=== PATIENT | female | born 1975 | race American Indian/Alaskan Native ===

== ENCOUNTER 2019-12-07 23:29 | Observation (INO) | payer MEDICAID, SELFPAY ==
[2019-12-07 23:36] VITALS: BP 121/58; PULSE 105; RESP 14; TEMP 36.8; O2SAT 99; BMI 23.3
--- NOTE | 2019-12-07 23:41 | ED_ITS ---
HPI - Female Genitourinary General Chief complaint: OB/Uterine Contractions Stated complaint: 2nd part of miscarriage today/pain Time Seen by Provider: 12/07/19 23:30 Source: patient Mode of arrival: Ambulatory Limitations: no limitations History of Present Illness HPI Narrative: 44F daily smoker without significant medical history is a at 7 weeks with ongoing miscarriage. She presents with heavy bleeding since 1800 and now is dizzy, weak, and lightheaded. She started feeling dizzy and lightheaded on Monday [facility] She [facility] evaluation and followed up again yesterday and was started on a medication that sounds like misoprostol. She had an ultrasound that demonstrated demise. She denies any chest pain or shortness of breath. She denies nausea, vomiting or diarrhea. She denies any dysuria, frequency or urgency. She takes no blood thinners. She states that she has bled through 10 pads since 6:00 p.m. and has changed her clothes multiple times. She states she is passing multiple clots as well. MD Complaint: vaginal bleeding Onset (ago): hour(s) Severity: moderate Quality: Aching Relieving factors: none Exacerbating factors: none Vaginal discharge: blood, dark blood and blood clots Patient : Yes Associated symptoms: weakness Related Data Home Medications Medication Instructions Recorded Confirmed citalopram 20 mg tablet 20 mg PO DAILY 08/08/19 08/08/19 Allergies Allergy/AdvReac Type Severity Reaction Status Date / Time No Known Drug Allergies Allergy Unverified 08/08/19 11:28 Review of Systems Constitutional Constitutional: Denies chills, Denies fatigue, Denies fever(s), Denies frequent falls, Denies lethargy and Reports weakness Eyes Eyes: Denies change in vision, Denies eye discharge, Denies irritation and Denies loss of vision ENT Ears, Nose, Mouth, and Throat: Denies change in voice, Denies dizziness, Denies neck pain, Denies sore throat and Denies throat swelling Cardiovascular Cardiovascular: Denies chest pain, Denies irregular heart rhythm, Denies lightheadedness, Denies palpitations, Denies dyspnea, Denies dyspnea on exertion and Denies orthopnea Respiratory Respiratory: Denies cough, Denies dyspnea, Denies dyspnea on exertion and Denies wheezing Gastrointestinal Gastrointestinal: Denies abdominal pain, Denies change in bowel habits, Denies diarrhea, Denies nausea and Denies vomiting Genitourinary Genitourinary: Reports abnormal vaginal bleeding, Denies hematuria, Denies flank pain, Denies urinary incontinence and Denies urinary urgency Musculoskeletal Musculoskeletal: Denies back pain, Denies muscle weakness, Denies neck pain, Denies numbness and Denies tingling Integumentary/Breasts Skin/Breast: Denies pruritus, Denies erythema, Denies rash and Denies wounds Neurologic Neurologic: Denies behavioral changes, Denies confusion, Denies dizziness, Denies frequent falls, Denies loss of vision, Denies numbness, Denies tingling and Reports weakness Psychiatric Psychiatric: Denies anxiety, Denies behavioral changes, Denies confusion, Denies depression, Denies homicidal ideation and Denies suicidal ideation Endocrine Endocrine: Denies fatigue, Denies flushing and Denies palpitations Hematologic/Lymphatic Hematologic/Lymphatic: Denies easy bruising Allergic/Immunologic Allergic/Immunologic: Denies urticaria, Denies throat swelling and Denies wheezing Patient History Surgical History Status post surgery (08/09/10) Smoking Status: Current every day smoker Exam Narrative Exam Narrative: GENERAL: [44] year old patient appears stated age. Well-nourished, well-developed patient, in mild distress. HEAD: Atraumatic. Normocephalic. EYES: Pupils equal round and reactive. Extraocular motions intact. No scleral icterus. No injection or drainage. ENT: Nose without bleeding, purulent drainage. Throat without erythema, tonsillar hypertrophy or exudate. Airway patent. NECK: Trachea midline. Non tender CARDIOVASCULAR: Regular rate and rhythm without murmurs, gallops, or rubs. RESPIRATORY: Clear to auscultation. Breath sounds equal bilaterally. No wheezes, rales, or rhonchi. GASTROINTESTINAL: Abdomen soft, non-tender, nondistended. PELVIC: brisk red blood from closed OS, fills visual field within seconds. Saturated blue pad within a few minutes. EXTREMITIES: No edema or joint tenderness. BACK: Nontender without deformity or crepitance. No flank tenderness. NEURO: AOx3. SKIN: No rash or erythema of visible areas Initial Vital Signs Initial Vital Signs: Vital Signs Temperature 98.3 F 12/07/19 23:36 Pulse Rate 105 H 12/07/19 23:36 Respiratory Rate 14 12/07/19 23:36 Blood Pressure 121/58 L 12/07/19 23:36 Pulse Oximetry 99 12/07/19 23:36 Course Course Course Narrative: patient with recent miscarriage and heavy bleeding continues to bleed quite heavily. Call to net application support specialist [employer] - she is on her way and asks that we activate the OR crew. Patient understands the plan and is in agreement Orders Ordered: ED Orders 12/07/19 23:40 UA Complete [Urinalysis and Microscopic] Stat 12/07/19 23:49 US pelvic complete Stat 12/07/19 23:50 Basic Metabolic Panel Stat Complete Blood Count AUTO DIFF Stat HCG Quantitative /Beta subunit Stat Type and Screen Stat 12/08/19 01:53 Hemoglobin and Hematocrit Stat Benzocaine (Cepacol Lozenge) 1 each PO PRN PRN PRN Reason: Sore Throat Fentanyl (Sublimaze) 0 mcg IV Q5M PRN PRN Reason: Pain, Moderate (4-6) Hydroxyzine HCl (Vistaril) 25 mg IM NOW PRN PRN Reason: Pain, Mild (1-3) Lactated Ringer's (Lactated Ringers) 1,000 mls @ 1,000 mls/hr IV BOLUS ONE Stop: 12/08/19 03:23 Last Admin: 12/08/19 02:26 Dose: 1,000 mls/hr Documented by: HGUBERN Lactated Ringer's (Lactated Ringers) 1,000 mls @ 42 mls/hr IV CONT RADHA Lactated Ringer's (Lactated Ringers) 1,000 mls @ 120 mls/hr IV CONT RADHA Lactated Ringer's (Lactated Ringers) 1,000 mls @ 100 mls/hr IV CONT RADHA Lorazepam (Ativan) 0.25 mg IV NOW PRN PRN Reason: Anxiety Meperidine HCl (Demerol) 25 mg IV PACUNOW PRN PRN Reason: Moderate pain or shivering Metoclopramide HCl (Reglan) 10 mg IV NOW PRN PRN Reason: Nausea And Vomiting Ondansetron HCl (Zofran) 4 mg IV NOW PRN PRN Reason: Nausea And Vomiting Oxycodone HCl (Percolone) 5 mg PO PACUNOW PRN PRN Reason: Mild or moderate pain Discontinued Medications Famotidine (Pepcid) 20 mg in 50 mls @ 200 mls/hr IV NOW ONE Stop: 12/08/19 02:21 Last Infusion: 12/08/19 02:45 Dose: 0 mls/hr Documented by: Admin: 12/08/19 02:14 Dose: 200 mls/hr Documented by: PEPITO Doxycycline Hyclate 200 mg/ (Sodium Chloride) 250 mls @ 250 mls/hr IV NOW ONE Stop: 12/08/19 02:36 Metoclopramide HCl (Reglan) 10 mg IV NOW ONE Stop: 12/08/19 02:08 Last Admin: 12/08/19 02:15 Dose: 10 mg Documented by: PEPITO Vital Signs Vital signs: Vital Signs - 8 hr 12/07/19 23:36 Temperature 98.3 F Pulse Rate 105 H Respiratory Rate 14 Blood Pressure 121/58 L Pulse Oximetry 99 MDM - Female Genitourinary Lab Data Result diagrams: 12/08/19 01:53 12/07/19 23:50 Labs: Lab Results 12/07/19 12/07/19 12/07/19 Range/Units 23:40 23:50 23:50 WBC 9.0 (4.5-11.0) X10^3/uL RBC 3.75 L (4.0-5.2) X10^6/uL Hgb 11.5 L (12.0-16.0) g/dL Hct 33.9 L (36-46) % MCV 90.4 (80-100) fL MCH 30.6 (26-34) PG MCHC 33.8 (30-36) % RDW 14.3 (11.6-14.8) % Plt Count 303 (150-400) X10^3/uL Neut % (Auto) 69.0 (50-75) % Lymph % (Auto) 22.7 L (25-40) % [place] % (Auto) 4.4 (3-14) % Eos % (Auto) 3.4 (2-4) % Baso % (Auto) 0.5 (0-2) % Neut # (Auto) 6200 (2071-9085) /uL Lymph # (Auto) 2000 (8746-7928) /uL [place] # (Auto) 400 (0-900) /uL Eos # (Auto) 300 (0-450) /uL Baso # (Auto) 0 (0-100) /uL Sodium 137 (137-145) mmol/L Potassium 4.0 (3.4-5.1) mmol/L Chloride 107 (98-107) mmol/L Carbon Dioxide 25 (22-32) mmol/L BUN 15 (7-17) mg/dL Creatinine 0.69 (0.52-1.04) mg/dL Estimated GFR > 60.0 (>60) mL/min BUN/Creatinine Ratio 21.7 (6-22) Glucose 114 H (70-100) mg/dL Calcium 8.9 (8.4-10.2) mg/dL HCG, Quant 1276.8 mIU/mL Urine Color Red Urine Appearance Turbid Urine pH 6.5 (4.5-8.0) Ur Specific [place] 1.025 (1.000-1.035) Urine Protein 3+ H (Negative) Urine Glucose (UA) Trace H (Negative) g/dL Urine Ketones Trace H (NEGATIVE) Urine Occult Blood 1+ H (Negative) Urine Nitrate Negative (Negative) Urine Bilirubin Negative (NEGATIVE) Urine Urobilinogen 0.2 (0.2) E.U./dL Ur Leukocyte Esterase Negative (NEGATIVE) Urine RBC >100/hpf H (0-5/HPF) Urine WBC None seen (0-5/HPF) Ur Squamous Epith Cells 0-1 /hpf (0-5/HPF) Urine Bacteria Occasional (0-1) (None) Ur Culture Indicated? Cult not indicated Blood Type Antibody Screen 12/07/19 12/08/19 Range/Units 23:50 01:53 WBC (4.5-11.0) X10^3/uL RBC (4.0-5.2) X10^6/uL Hgb 10.6 L (12.0-16.0) g/dL Hct 31.0 L (36-46) % MCV (80-100) fL MCH (26-34) PG MCHC (30-36) % RDW (11.6-14.8) % Plt Count (150-400) X10^3/uL Neut % (Auto) (50-75) % Lymph % (Auto) (25-40) % [place] % (Auto) (3-14) % Eos % (Auto) (2-4) % Baso % (Auto) (0-2) % Neut # (Auto) (7870-8972) /uL Lymph # (Auto) (6291-1873) /uL [place] # (Auto) (0-900) /uL Eos # (Auto) (0-450) /uL Baso # (Auto) (0-100) /uL Sodium (137-145) mmol/L Potassium (3.4-5.1) mmol/L Chloride (98-107) mmol/L Carbon Dioxide (22-32) mmol/L BUN (7-17) mg/dL Creatinine (0.52-1.04) mg/dL Estimated GFR (>60) mL/min BUN/Creatinine Ratio (6-22) Glucose (70-100) mg/dL Calcium (8.4-10.2) mg/dL HCG, Quant mIU/mL Urine Color Urine Appearance Urine pH (4.5-8.0) Ur Specific [place] (1.000-1.035) Urine Protein (Negative) Urine Glucose (UA) (Negative) g/dL Urine Ketones (NEGATIVE) Urine Occult Blood (Negative) Urine Nitrate (Negative) Urine Bilirubin (NEGATIVE) Urine Urobilinogen (0.2) E.U./dL Ur Leukocyte Esterase (NEGATIVE) Urine RBC (0-5/HPF) Urine WBC (0-5/HPF) Ur Squamous Epith Cells (0-5/HPF) Urine Bacteria (None) Ur Culture Indicated? Blood Type AB Positive Antibody Screen Negative Discharge Plan Departure Patient Disposition: Admitted as Observation Clinical Impression: Abnormal vaginal bleeding Referrals: Nasrin Gramajo MD [Primary Care Provider] - Admit Date/Time: 12/08/19 02:15 Admit Provider: Sarai Nielsen
--- NOTE | 2019-12-07 23:49 | DI.US.S_ITS ---
PROCEDURE: US PELVIC COMPLETE INDICATIONS: HEAVY BLEEDING; METHOTREXATE 12 HOURS AGO TECHNIQUE: Real-time scanning was performed of the pelvic organs, with image documentation. Additional endovaginal scanning was necessary due to incomplete visualization of the adnexal and endometrial structures by transabdominal scanning. COMPARISON: [facility], , PELVIC COMPLETE, 07/24/2017, 13:47. FINDINGS: Transabdominal scanning: Limited scanning through the kidneys shows no hydronephrosis. No pathologic free abdominal or pelvic fluid. Endovaginal scanning: Uterus: Uterus is normal in size at all lumbar 11.0 x 5.0 x 5.0 cm. The endometrium measures 17 mm in combined thickness. No focal myometrial lesions are identified. The endometrium appears to be moderately heterogeneous without anechoic fluid appreciated. No definite intrauterine contraceptive device is appreciated. Heterogeneous moderately echogenic material/debris and appears to be present within the endocervical canal without anechoic fluid appreciated. Ovaries: The ovaries were not definitively identified. No obvious adnexal abnormalities are appreciated. IMPRESSION: 1. No evidence of an intrauterine . 2. Thickening and heterogeneity of the endometrium and endocervical canal likely represents blood products from an in progress. Please correlate clinically with serum beta hCG levels. Note: The preliminary report provided by [facility]. is concordant with the final report. Dictated by: Enzo Fuller M.D. on 12/08/2019 at 7:43 Approved by: Enzo Fuller M.D. on 12/08/2019 at 7:46
[2019-12-07 23:53] LABS: WBC Urine None Seen (0-5/HPF)
[2019-12-08] VITALS (12 sets, daily range): BP systolic 88–107; BP diastolic 55–68; PULSE 66–86; RESP 13–17; TEMP 36.1–37.1; O2SAT 96–100; BMI 23.3
--- NOTE | 2019-12-08 | PATH_ITS ---
[facility] Accession Number: [id number] . 01 Material submitted: . product of conception - PRODUCT OF CONCEPTION . 01 Clinical history: . SECOND PART OF MISCARRIAGE TODAY / PAIN . 02 Diagnosis: Products of Conception, Removal: Chorionic villi present, consistent with products of conception. [facility] 12/10/2019 1152 Local . 02 Electronically signed: . Paula Carney MD, Pathologist NPI- [id number] . 01 Gross description: . PRODUCT OF CONCEPTION: Received in formalin are multiple fragments of hemorrhagic spongy tissue measuring 3.0 x 3.0 x 2.5 cm in aggregate. parts are not identified. Soil Expert sections are submitted in 2 cassettes. /[facility] [place] 12/09/2019 1856 Local . 02 Pathologist provided ICD-10: O02.1 . 02 CPT . 582613 Performed at: 01 [facility] [address] [facility], [place], [place] [id number] MD Michael Pulido MD Phone: [phone] Performed at: [address] [facility] [address] [place], [place] [id number] MD Paula Carney MD Phone: [phone]
[2019-12-08 00:01] LABS: Add Manual Diff / Slide Review NO; Basophils Absolute Auto 0 /uL (0-100); Basophils Percent Auto 0.5 % (0-2); Eosinophils Absolute Auto 300 /uL (0-450); Eosinophils Percent Auto 3.4 % (2-4); Hematocrit 33.9 % (36-46); Hemoglobin 11.5 g/dL (12.0-16.0); Lymphocytes Absolute Auto 2000 /uL (1100-4500); Lymphocytes Percent Auto 22.7 % (25-40); Mean Corpuscular HGB Conc 33.8 % (30-36); Mean Corpuscular Hemoglobin 30.6 PG (26-34); Mean Corpuscular Volume 90.4 fL (80-100); Monocytes Absolute Auto 400 /uL (0-900); Monocytes Percent Auto 4.4 % (3-14); Neutrophils Absolute Auto 6200 /uL (1500-7000); Platelet Count 303 X10^3/uL (150-400); Red Blood Cell Count 3.75 X10^6/uL (4.0-5.2); Red Cell Distribution Width 14.3 % (11.6-14.8)
[2019-12-08 00:02] LABS: Appearance Urine UA TURBID; Bilirubin Urine UA NEGATIVE (NEGATIVE); Color Urine UA RED; Glucose Urine UA TRACE g/dL (Negative); Ketones Urine UA TRACE (NEGATIVE); Leukocyte Esterase Urine UA NEGATIVE (NEGATIVE); Nitrite Urine UA NEGATIVE (Negative); Occult Blood Urine UA 1+ (Negative); Protein Urine UA 3+ (Negative); Specific Gravity Urine UA 1.025 (1.000-1.035); Urobilinogen Urine UA 0.2 E.U./dL (0.2)
[2019-12-08 00:04] LABS: Bacteria Urine Occasional (0-1); Culture Indicated Urine Cult Not Indicated; RBC Urine >100/HPF (0-5/HPF); Squamous Epithelial Cell Urine 0-1 /HPF (0-5/HPF); pH Urine UA 6.5 (4.5-8.0)
[2019-12-08 00:12] LABS: BUN Creatinine Ratio 21.7 (6-22); Blood Urea Nitrogen 15 mg/dL (7-17); Calcium 8.9 mg/dL (8.4-10.2); Carbon Dioxide 25 mmol/L (22-32); Chloride 107 mmol/L (98-107); Estimated Glomerular Filt Rate > 60.0 mL/min (>60); Glucose 114 mg/dL (70-100); HEMOLYSIS 20 (0-50); Sodium 137 mmol/L (137-145)
[2019-12-08 00:29] LABS: HCG Quantitative /Beta subunit 1276.8 mIU/mL
--- NOTE | 2019-12-08 01:44 | PC.NURSE ---
Provider wanted to do pelvic exam, right before exam, had pt remove underwear and had chux placed under her. By the time provider in room to perform exam, chux pad was saturated.
[2019-12-08 02:03] LABS: Hemoglobin 10.6 g/dL (12.0-16.0)
[2019-12-08] MEDS: FAMOTIDINE 20 MG/50 ML PIGGYBACK 200 MG IV (02:14)
[2019-12-08] MEDS: METOCLOPRAMIDE 10 MG/2 ML INJ IV (02:15)
[2019-12-08] MEDS: LACTATED RINGERS 1,000 ML 1000 ML IV (02:26)
--- NOTE | 2019-12-08 02:44 | P.HP_ITS ---
History of Present Illness History of Present Illness Date Patient Seen: 12/08/19 Time Patient Seen: 02:44 Date of Onset of Symptoms: 12/07/19 Chief complaint: 2nd part of miscarriage today/pain Narrative: This patient is a 44yo @ unknown weeks gestation, early/1st trimester per patient, who presents with profuse vaginal bleeding after diagnosis of missed and treatment with [facility]rostol at [facility]. The patient reports that she sought treatment three days ago after some spotting and cramping, and underwent a test and transvaginal ultrasound. She reports that she was told that she had a in her uterus that should have had a heart rate but did not. She was given a medication to take by mouth, and then 12 hours later 4 more medications to insert into the vagina, and reports that the names of both began with M. She took the intravaginal medication at 6PM, and a few hours later, began having heavy vaginal bleeding that soaked through multiple pads and sets of clothing, with associated cramping. She denies systemic symptoms of acute blood loss anemia or infection, including dizziness, palpitations, other abdominal pain, fevers, chills, pain with voiding, or any other associated complaints. She reports a history of two early miscarriages that were expectantly managed, and 5 term vaginal deliveries, one of which was complicated by ? D&C vs. manual extraction of retained placenta in the OR. 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 Patient History Medical History Vaginal delivery (Acute) Surgical History Status post surgery (08/09/10) Family & Social History Social History: household members children Safety & Behavioral: Feels Safe in Current Yes Environment Been Physically Hurt or No Threatened By a Person Tobacco & Substance use: Smoking Status Current every day smoker alcohol intake frequency 0-2 drinks per day Substance Use Type does not use Meds Home Medications and Allergies Home Medications Medication Instructions Recorded Confirmed Type citalopram 20 mg tablet 20 mg PO DAILY 08/08/19 08/08/19 History Allergies Allergy/AdvReac Type Severity Reaction Status Date / Time No Known Drug Allergies Allergy Unverified 08/08/19 11:28 Review of Systems Constitutional Constitutional: Reports system reviewed and no additional complaints, except as documented Cardiovascular Cardiovascular: Reports system reviewed; no additional complaints, except as doc umented Respiratory Respiratory: Reports system reviewed and no additional complaints, except as documented Gastrointestinal Gastrointestinal: Reports as per HPI Genitourinary Genitourinary: Reports as per HPI Neurologic Neurologic: Reports system reviewed and no additional complaints, except as documented Hematologic/Lymphatic Hematologic/Lymphatic: Reports system reviewed and no additional complaints, except as documented Exam Vital Signs (past 8 hours): - 12/07/19 23:36 12/08/19 02:35 Temperature 98.3 F Pulse Rate 105 H 73 Respiratory Rate 14 16 Blood Pressure 121/58 L Blood Pressure [Left Arm] 91/57 L Pulse Oximetry 99 97 Oxygen Delivery Method Room Air GI Palpation: soft and tender (mild, suprapubic. No masses/distention/rebound /guarding) General: bladder normal to palpation External Female Exam: external appearance normal Bimanual Exam- Vagina & Uterus: normal vaginal palpation, bladder normal to palpation, uterus enlarged (10 week sized), uterus tender and other (palpably dilated cervix with large clot palpable in cervical os) Bimanual Exam- Adnexa, other: normal adnexae, no adnexal masses, adnexae non- tender and No cul-de-sac fullness Skin General: no rashes or lesions noted Objective Labs Result Diagrams: 12/08/19 01:53 12/07/19 23:50 Labs: Laboratory Results - last 24 hr 12/07/19 12/07/19 12/07/19 23:40 23:50 23:50 WBC 9.0 RBC 3.75 L Hgb 11.5 L Hct 33.9 L MCV 90.4 MCH 30.6 MCHC 33.8 RDW 14.3 Plt Count 303 Neut % (Auto) 69.0 Lymph % (Auto) 22.7 L [place] % (Auto) 4.4 Eos % (Auto) 3.4 Baso % (Auto) 0.5 Neut # (Auto) 6200 Lymph # (Auto) 2000 [place] # (Auto) 400 Eos # (Auto) 300 Baso # (Auto) 0 Sodium 137 Potassium 4.0 Chloride 107 Carbon Dioxide 25 BUN 15 Creatinine 0.69 Estimated GFR > 60.0 BUN/Creatinine Ratio 21.7 Glucose 114 H Calcium 8.9 HCG, Quant 1276.8 Urine Color Red Urine Appearance Turbid Urine pH 6.5 Ur Specific [place] 1.025 Urine Protein 3+ H Urine Glucose (UA) Trace H Urine Ketones Trace H Urine Occult Blood 1+ H Urine Nitrate Negative Urine Bilirubin Negative Urine Urobilinogen 0.2 Ur Leukocyte Esterase Negative Urine RBC >100/hpf H Urine WBC None seen Ur Squamous Epith Cells 0-1 /hpf Urine Bacteria Occasional (0-1) Ur Culture Indicated? Cult not indicated Blood Type Antibody Screen 12/07/19 12/08/19 23:50 01:53 WBC RBC Hgb 10.6 L Hct 31.0 L MCV MCH MCHC RDW Plt Count Neut % (Auto) Lymph % (Auto) [place] % (Auto) Eos % (Auto) Baso % (Auto) Neut # (Auto) Lymph # (Auto) [place] # (Auto) Eos # (Auto) Baso # (Auto) Sodium Potassium Chloride Carbon Dioxide BUN Creatinine Estimated GFR BUN/Creatinine Ratio Glucose Calcium HCG, Quant Urine Color Urine Appearance Urine pH Ur Specific [place] Urine Protein Urine Glucose (UA) Urine Ketones Urine Occult Blood Urine Nitrate Urine Bilirubin Urine Urobilinogen Ur Leukocyte Esterase Urine RBC Urine WBC Ur Squamous Epith Cells Urine Bacteria Ur Culture Indicated? Blood Type AB Positive Antibody Screen Negative Assessment & Plan Assessment and plan (1) Incomplete : Current visit: Yes Status: Acute Assessment & Plan narrative: This patient presents with an incomplete with active vaginal bleeding, though she is otherwise hemodynamically stable. She reports an intrauterine and a history consistent with treatment with mifepristone and misoprostol, has a large clot remaining in the uterus per ED ultrasound and exam and no adnexal masses with low concern for ectopic . Dating is uncertain, and though medical management has typically only extended into the 9th week in the past, changes surrounding COVID mean that the patient may be further along in the 1st trimester. No records are available to correlate. I discussed the risks and benefits of suction dilation and curettage with the patient, including removal of the rest of the POCs and risks of uterine perforation with associated damage to bowel and bladder, infection, and bleeding requiring blood transfusion. The patient vocalized understanding of the above and all questions were answered. Informed consent was obtained. We will proceed with suction dilation and curettage. - 200mg IV doxycycline administered in ED - 1L LR bolus with 125ccs/hr to follow - NPO - T&S drawn, rh positive - Transfer to OR pending
[2019-12-08] MEDS: DOXYCYCLINE 200 MG in SODIUM CHLORIDE 0.9% 250 ML IV (02:48)
--- NOTE | 2019-12-08 03:37 | SUR.OPER ---
Lithotomy on padded OR bed, head on pillow, arms secured on padded arm boards at <90 degrees abduction. Legs secured in padded yellow fins stirrups.
--- NOTE | 2019-12-08 03:41 | PM.OP.1 ---
Operative Date/Time/Diagnoses Date of procedure: 12/08/19 Time of procedure: 03:00 Pre-op diagnosis: incomplete Post-op diagnosis: same Procedure & Clinicians Procedure: suction dilation and curettage Same procedure as scheduled: Yes Indications: incomplete miscarriage with heavy uterine bleeding Surgeon: Sarai Nielsen Click Yes if Unassisted: Yes Anesthesia Type: General Operative Notes Findings: Normal vulva and vagina, cervix dilated to 1.5cm. Moderate POCs on suction, large clot/POCs evacuated during surgical prep. Closure Type: not applicable Specimen(s): other (products of conception.) Estimated Blood Loss (mL): 150 Procedure in detail: After the diagnosis was made and informed consent was obtained, the patient was taken to the operating room. Precautions were used per protocol for COVID19 unknown status throughout the case. General anesthesia was obtained without complication, and she was placed in the dorsal lithotomy position and prepped and draped in the normal sterile fashion. A straight catheterization was performed to empty the bladder. A bivalve speculum was placed in the vagina, and the cervix visualized with POCs and clot protruding from the dilated external os. These POCs were gently teased out with a ring forceps. The anterior lip of the cervix was grasped with a single tooth tenaculum, and Hegar dilators up to 10mm were gently inserted into the cervix, with nearly no force required as the cervix was already dilated. An 8mm suction curette tip was gently inserted into the uterus and carefully advanced to the fundus, and suction was activated. POCs were removed with this pass, and 3 more passes were performed with suction curettage in the same manner. When no further POCs were removed, a sharp curettage was very carefully performed and another pass made with the suction curette for removal of a small amount of clot and minimal further active bleeding. No further bleeding from the cervix was noted, and the tenaculum was removed with spontaneous hemostasis at the tenaculum sites. The speculum was removed from the vagina, and the patient transported to the PACU in stable condition with COVID precautions as above. Complications: none Post-operative Condition: stable Disposition: PACU Plan for aftercare: Given significant bleeding prior to presentation and in ED and decreased BPs just prior to transfer, patient to be admitted until morning with repeat H&H in AM.
[2019-12-08] MEDS: LACTATED RINGERS 1,000 ML 42 ML IV (03:45)
--- NOTE | 2019-12-08 04:33 | SUR.PHASEI ---
pt transferred to acute care floor in stable condition, vss. Bedside report given STEPHANIA Reis and transferred care of pt to her at that time.
[2019-12-08] MEDS: LACTATED RINGERS 1,000 ML 125 ML IV (04:40)
--- NOTE | 2019-12-08 06:03 | PC.NURSE ---
Pt admitted to unit at 0435 as AxOx4, Vitals stable, tolerating room air. Small amount of bloody drainage on chalo-pad. Reports no pain or nausea. IVF: LR @125mL/hr Pt has not voided yet, however PACU nurse reported to me they did an In & Out straight cath in PACU so sometime around 0400. Pt has not been OOB yet
[2019-12-08 08:59] LABS: Add Manual Diff / Slide Review NO; Basophils Absolute Auto 0 /uL (0-100); Basophils Percent Auto 0.4 % (0-2); Eosinophils Absolute Auto 200 /uL (0-450); Eosinophils Percent Auto 2.7 % (2-4); Hematocrit 26.1 % (36-46); Hemoglobin 8.8 g/dL (12.0-16.0); Lymphocytes Absolute Auto 1800 /uL (1100-4500); Lymphocytes Percent Auto 25.5 % (25-40); Mean Corpuscular HGB Conc 33.7 % (30-36); Mean Corpuscular Hemoglobin 30.7 PG (26-34); Mean Corpuscular Volume 90.9 fL (80-100); Monocytes Absolute Auto 300 /uL (0-900); Monocytes Percent Auto 4.2 % (3-14); Neutrophils Absolute Auto 4700 /uL (1500-7000); Neutrophils Percent Auto 67.2 % (50-75); Platelet Count 216 X10^3/uL (150-400); Red Blood Cell Count 2.87 X10^6/uL (4.0-5.2); Red Cell Distribution Width 14.4 % (11.6-14.8); White Blood Cell Count 7.1 X10^3/uL (4.5-11.0)
[2019-12-08] MEDS: CITALOPRAM 20 MG TABLET PO (09:28)
--- NOTE | 2019-12-08 10:14 | PM.PNPO.1 ---
Subjective Subjective Date Patient Seen: 12/08/19 Time Patient Seen: 10:14 Interval history: This patient is a 44yo POD#0 s/p suction dilation and curettage for incomplete . The procedure was uncomplicated, though with significant blood loss in the ED prior to the procedure. The patient reports feeling well this AM, ambulating without dizziness, palpitations, or heavy vaginal bleeding, no abdominal or cramping pain, no fevers or chills, no trouble voiding or passing flatus, no nausea or vomiting, and tolerating a normal breakfast well. The patient is only using motrin for pain control. She reports that she has follow up at [facility] week for miscarriage follow up and contraceptive counselling, and we discussed that she can keep this appointment or come to our clinic in 1-2 weeks for follow up. Exam Vital Signs (past 8 hours): - 12/08/19 02:35 12/08/19 02:55 12/08/19 04:02 Temperature 98.7 F Pulse Rate 73 74 86 Respiratory Rate 16 15 17 Blood Pressure 107/61 Blood Pressure [Left Arm] 91/57 L 88/55 L Pulse Oximetry 97 96 99 12/08/19 04:07 12/08/19 04:12 12/08/19 04:18 Temperature Pulse Rate 78 76 80 Respiratory Rate 15 15 13 Blood Pressure 101/64 101/65 101/65 Blood Pressure [Left Arm] Pulse Oximetry 100 100 99 12/08/19 04:36 12/08/19 05:15 12/08/19 05:30 Temperature 98 F 98.2 F 98.2 F Pulse Rate 72 67 67 Respiratory Rate 14 16 16 Blood Pressure 103/68 99/67 95/63 Blood Pressure [Left Arm] Pulse Oximetry 100 98 98 12/08/19 06:31 12/08/19 08:11 Temperature 98.0 F 97.0 F L Pulse Rate 66 68 Respiratory Rate 16 14 Blood Pressure 99/62 94/63 Blood Pressure [Left Arm] Pulse Oximetry 98 98 Oxygen Delivery Method Room Air Oxygen Flow Rate 0 Const General: cooperative, healthy appearing and comfortable Resp Effort & Inspection: normal respiratory effort Auscultation: clear to auscultation bilaterally Cardio Rate: regular rate Rhythm: regular rhythm GI Palpation: soft and No tender External Female Exam: external appearance normal Other: moderate vaginal bleeding on pad, no further bleeding on exam Skin General: no rashes or lesions noted and No pallor Objective Labs Result Diagrams: 12/08/19 08:50 12/07/19 23:50 Labs: Laboratory Results - last 24 hr 12/07/19 12/07/19 12/07/19 23:40 23:50 23:50 WBC 9.0 RBC 3.75 L Hgb 11.5 L Hct 33.9 L MCV 90.4 MCH 30.6 MCHC 33.8 RDW 14.3 Plt Count 303 Neut % (Auto) 69.0 Lymph % (Auto) 22.7 L [place] % (Auto) 4.4 Eos % (Auto) 3.4 Baso % (Auto) 0.5 Neut # (Auto) 6200 Lymph # (Auto) 2000 [place] # (Auto) 400 Eos # (Auto) 300 Baso # (Auto) 0 Sodium 137 Potassium 4.0 Chloride 107 Carbon Dioxide 25 BUN 15 Creatinine 0.69 Estimated GFR > 60.0 BUN/Creatinine Ratio 21.7 Glucose 114 H Calcium 8.9 HCG, Quant 1276.8 Urine Color Red Urine Appearance Turbid Urine pH 6.5 Ur Specific [place] 1.025 Urine Protein 3+ H Urine Glucose (UA) Trace H Urine Ketones Trace H Urine Occult Blood 1+ H Urine Nitrate Negative Urine Bilirubin Negative Urine Urobilinogen 0.2 Ur Leukocyte Esterase Negative Urine RBC >100/hpf H Urine WBC None seen Ur Squamous Epith Cells 0-1 /hpf Urine Bacteria Occasional (0-1) Ur Culture Indicated? Cult not indicated Blood Type Antibody Screen 12/07/19 12/08/19 12/08/19 23:50 01:53 08:50 WBC 7.1 RBC 2.87 L Hgb 10.6 L 8.8 L Hct 31.0 L 26.1 L MCV 90.9 MCH 30.7 MCHC 33.7 RDW 14.4 Plt Count 216 Neut % (Auto) 67.2 Lymph % (Auto) 25.5 [place] % (Auto) 4.2 Eos % (Auto) 2.7 Baso % (Auto) 0.4 Neut # (Auto) 4700 Lymph # (Auto) 1800 [place] # (Auto) 300 Eos # (Auto) 200 Baso # (Auto) 0 Sodium Potassium Chloride Carbon Dioxide BUN Creatinine Estimated GFR BUN/Creatinine Ratio Glucose Calcium HCG, Quant Urine Color Urine Appearance Urine pH Ur Specific [place] Urine Protein Urine Glucose (UA) Urine Ketones Urine Occult Blood Urine Nitrate Urine Bilirubin Urine Urobilinogen Ur Leukocyte Esterase Urine RBC Urine WBC Ur Squamous Epith Cells Urine Bacteria Ur Culture Indicated? Blood Type AB Positive Antibody Screen Negative Assessment & Plan Post-op Postoperative Procedures: Procedures Operation Date: 12/08/19 03:00 Actual Procedures Side Surgeon p Dilation and Curettage Sarai Nielsen MD Postoperative day: 0 Postoperative status: doing well Postoperative status narrative: Patient meeting postoperative goals well, no signs of infection or acute blood loss anemia. Postoperative plan: ambulate and discharge Postoperative plan narrative: Patient counselled on precautions for return including heavy vaginal bleeding, fevers, chills, nausea, vomiting, dizziness, palpitations, or worsening abdominal pain. Patient encouraged to have follow up in 1-2 weeks, preferably in our clinic but any follow up acceptable. Patient encouraged to consider and use contraception unless desired. Time Spent With Patient Time with patient: 15-24 minutes
--- NOTE | 2019-12-08 10:16 | CM.DANOTE ---
DCP/Assessment: Reviewed chart. Patient is a 44yr old female admitted to [facility].. for suction dilation and curettage performed by Dr. Nielsen. Patient presented to Emergency Department with incomplete with active vaginal bleeding. Met with patient explained CM/SW role. Patient alert and oriented with flat affect at time of visit. Patient reports that she hopes to return home today. Patient reports that she is completely I in all ADL's. Patient denies any needs and reports that she resides with her children. Patient indicates that this was a unplanned . Patient has her care in the parking lot therefore, does not have any transportation needs. [place] f/u with her as outpatient. At this time no identified d/c planning needs. P: Home when stable. NIA Jaime Discharge Planning/Care Management CM Discharge Assessment Start: 12/08/19 10:12 Freq: Status: Active Protocol: Document 12/08/19 10:12 KJS (Rec: 12/08/19 10:16 KJS [id number]) Discharge Planning Assessment Assigned Keeper Head NIA Jaime Contact Information Jenniferwei ChaudhariHatch ph# Advance Directives? No History Provided By Patient,Medical Record Prior Living Arrangements House Household Members children Type of transporation used prior to Drives own vehicle admit Independent with ADL's Yes Is patient alert and oriented? Yes Caregiver for Another Yes: children Barriers to Discharge No Discharge Plan Home Referrals Initiated None needed Whiteboard Updated in Patient Room with Yes name and ext. # of Keeper Head Review Status In Process Next Review Type Continued Stay Review
--- NOTE | 2019-12-08 10:25 | P.DS_ITS ---
History of Present Illness History of Present Illness Chief complaint: 2nd part of miscarriage today/pain Narrative: This patient is a 44yo @ unknown weeks gestation, early/1st trimester per patient, who presents with profuse vaginal bleeding after diagnosis of missed and treatment with misoprostol at [facility]. The patient reports that she sought treatment three days ago after some spotting and cramping, and underwent a test and transvaginal ultrasound. She reports that she was told that she had a in her uterus that should have had a heart rate but did not. She was given a medication to take by mouth, and then 12 hours later 4 more medications to insert into the vagina, and reports that the names of both began with M. She took the intravaginal medication at 6PM, and a few hours later, began having heavy vaginal bleeding that soaked through multiple pads and sets of clothing, with associated cramping. She denies systemic symptoms of acute blood loss anemia or infection, including dizziness, palpitations, other abdominal pain, fevers, chills, pain with voiding, or any other associated complaints. She reports a history of two early miscarriages that were expectantly managed, and 5 term vaginal deliveries, one of which was complicated by ? D&C vs. manual extraction of retained placenta in the OR. She denies any history of thrombophilia or co agulopathy, and denies any other contributory national account representative, medical, surgical, family, or social history. Discharge Providers Provider Date of admission: 12/08/19 02:15 Discharge Date: 12/08/19 Primary care physician: Nasrin Gramajo MD Consults: 12/08/19 04:29 Consult to Discharge Planning Routine Comment: Discharge provider: Sarai Nielsen MD Summary Hospital Course Discharge Diagnosis: incomplete miscarriage Hospital Course: This patient presented with heavy vaginal bleeding in the setting of recent medical treatment for 1st trimester miscarriage. She was taken for uncomplicated suction dilation and curettage, and was discharged after an uneventful recovery. Status at Discharge Cognitive/behavioral status at discharge: oriented Functional status at discharge: independent ambulation Overall status at discharge: patient is progressing back to baseline Time Spent with Patient Time spent: Less than 30 minutes Exam Vital Signs (past 8 hours): - 12/08/19 02:35 12/08/19 02:55 12/08/19 04:02 Temperature 98.7 F Pulse Rate 73 74 86 Respiratory Rate 16 15 17 Blood Pressure 107/61 Blood Pressure [Left Arm] 91/57 L 88/55 L Pulse Oximetry 97 96 99 12/08/19 04:07 12/08/19 04:12 12/08/19 04:18 Temperature Pulse Rate 78 76 80 Respiratory Rate 15 15 13 Blood Pressure 101/64 101/65 101/65 Blood Pressure [Left Arm] Pulse Oximetry 100 100 99 12/08/19 04:36 12/08/19 05:15 12/08/19 05:30 Temperature 98 F 98.2 F 98.2 F Pulse Rate 72 67 67 Respiratory Rate 14 16 16 Blood Pressure 103/68 99/67 95/63 Blood Pressure [Left Arm] Pulse Oximetry 100 98 98 12/08/19 06:31 12/08/19 08:11 Temperature 98.0 F 97.0 F L Pulse Rate 66 68 Respiratory Rate 16 14 Blood Pressure 99/62 94/63 Blood Pressure [Left Arm] Pulse Oximetry 98 98 Oxygen Delivery Method Room Air Oxygen Flow Rate 0 Objective Labs Result Diagrams: 12/08/19 08:50 12/07/19 23:50 Labs: Laboratory Results - last 24 hr 12/07/19 12/07/19 12/07/19 23:40 23:50 23:50 WBC 9.0 RBC 3.75 L Hgb 11.5 L Hct 33.9 L MCV 90.4 MCH 30.6 MCHC 33.8 RDW 14.3 Plt Count 303 Neut % (Auto) 69.0 Lymph % (Auto) 22.7 L [place] % (Auto) 4.4 Eos % (Auto) 3.4 Baso % (Auto) 0.5 Neut # (Auto) 6200 Lymph # (Auto) 2000 [place] # (Auto) 400 Eos # (Auto) 300 Baso # (Auto) 0 Sodium 137 Potassium 4.0 Chloride 107 Carbon Dioxide 25 BUN 15 Creatinine 0.69 Estimated GFR > 60.0 BUN/Creatinine Ratio 21.7 Glucose 114 H Calcium 8.9 HCG, Quant 1276.8 Urine Color Red Urine Appearance Turbid Urine pH 6.5 Ur Specific [place] 1.025 Urine Protein 3+ H Urine Glucose (UA) Trace H Urine Ketones Trace H Urine Occult Blood 1+ H Urine Nitrate Negative Urine Bilirubin Negative Urine Urobilinogen 0.2 Ur Leukocyte Esterase Negative Urine RBC >100/hpf H Urine WBC None seen Ur Squamous Epith Cells 0-1 /hpf Urine Bacteria Occasional (0-1) Ur Culture Indicated? Cult not indicated Blood Type Antibody Screen 12/07/19 12/08/19 12/08/19 23:50 01:53 08:50 WBC 7.1 RBC 2.87 L Hgb 10.6 L 8.8 L Hct 31.0 L 26.1 L MCV 90.9 MCH 30.7 MCHC 33.7 RDW 14.4 Plt Count 216 Neut % (Auto) 67.2 Lymph % (Auto) 25.5 [place] % (Auto) 4.2 Eos % (Auto) 2.7 Baso % (Auto) 0.4 Neut # (Auto) 4700 Lymph # (Auto) 1800 [place] # (Auto) 300 Eos # (Auto) 200 Baso # (Auto) 0 Sodium Potassium Chloride Carbon Dioxide BUN Creatinine Estimated GFR BUN/Creatinine Ratio Glucose Calcium HCG, Quant Urine Color Urine Appearance Urine pH Ur Specific [place] Urine Protein Urine Glucose (UA) Urine Ketones Urine Occult Blood Urine Nitrate Urine Bilirubin Urine Urobilinogen Ur Leukocyte Esterase Urine RBC Urine WBC Ur Squamous Epith Cells Urine Bacteria Ur Culture Indicated? Blood Type AB Positive Antibody Screen Negative Discharge Plan Discharge Plan Patient Disposition: Home Discharge orders & Medications Prescriptions: New ferrous gluconate 324 mg (38 mg iron) tablet 324 mg PO DAILY Qty: 30 RF: 3 Continued citalopram 20 mg tablet 20 mg PO DAILY RF: 0 Follow up/Referrals: Nasrin Gramajo MD [Primary Care Provider] - Sarai Nielsen MD [Physician] - 2 Weeks (dilation and curettage) Diet/Activity/Treatments Diet: Regular Activity: Nothing in the vagina for 2 weeks. Avoid heavy lifting for one week. Eat frequent small, healthy meals and drink plenty of water. Skin/Wound/Dressing Care Report to your healthcare provider any signs of infection, such as:: chills, fever, night sweats, increased pain, unusual drainage and unusual redness Visit Report/Discharge Packet Instructions: DI for Miscarriage, DI for a Dilation and Curettage, DI for Vagin al Bleeding During , DI for Vaginal Bleeding Discharge Data Primary Care Provider: Nasrin Gramajo Attending Provider: Sarai Nielsen Admit Date/Time: 12/08/19 02:15 Discharges patient from system. Discharge Date/Time: 12/08/19 12:52
--- NOTE | 2019-12-08 12:27 | PC.NURSE ---
Patient voided 375cc of bloody urine this morning without any clots. She is up and moving around fine... Eating lunch and denies any dizziness. here to see patient and wrote discharge orders for her. Her chalo pad was 3/4 covered in blood, which is a moderate amount. Phoned Dr. Nielsen to let her know and she states pt can go home if she is not dizzy ,eating well, and vs stable, all which are.
--- NOTE | 2019-12-13 13:25 | PC.NURSE ---
Late entry: Stop times for LR 12/07 0431and 12/07 1200
== END 2019-12-08 12:52 | disposition home or self-care (01) ==
LOC: ED 12-08 02:08 → AC 12-08 02:16
PROVIDERS: Admitting Provider Obstetrics & Gynecology; Emergency Provider Emergency Medicine; PCP Family Medicine; Visit Provider Obstetrics & Gynecology
PROC: (CPT 58120; principal; 2019-12-08 03:00)
DX: O03.4 Incomplete spontaneous abortion without complication (principal); N93.9 Abnormal uterine and vaginal bleeding, unspecified; Z3A.01 Less than 8 weeks gestation of pregnancy; F17.210 Nicotine dependence, cigarettes, uncomplicated
CPT/HCPCS: 59820; 36415; 76830; 76856; 80048; 81001; 84702; 85014; 85018; 85025; 86850; 86900; 86901; 96361; 96365; 96375; 99284; 99285; G0378; J0330; J2250; J2405; J2704; J2765; J3010

== ENCOUNTER → 2020-06-01 13:03 | Outpatient (CLI) | payer MEDICAID, SELFPAY ==
[2019-12-08 02:53] VITALS: BMI 23.3
--- NOTE | 2020-06-01 | DI.US.S_ITS ---
LIMITED ULTRASOUND OF LEFT BREAST: 06/01/2020 CLINICAL: Nipple discharge, left breast, not bloody. 6-7months. Comparison is made to exams dated: 06/01/2020 mammogram, 04/25/2017 mammogram, and 10/20/2016 [facility]. Color flow and real-time ultrasound of the left breast retroareolar were performed. Knight scale images of the real-time examination were reviewed. No significant abnormalities were seen sonographically in the left breast. IMPRESSION: BENIGN There is no sonographic evidence of malignancy. There is no abnormality seen in the left breast to correspond with the area of clinical concern and non-bloody discharge from the nipple which likely represent physiological discharge, however, clinical followup is recommended for persistent or worsening symptoms or the development of any clinically suspicious findings. A 1 year screening mammogram is recommended. Findings and recommendations were conveyed to the patient during today's evaluation. This exam was interpreted at Station ID: [id number]. Electronically Signed By: James Menendez M.D. aty/:06/01/2020 15:24:46 letter sent: Clinical Evaluation Ultrasound BI-RADS: 2 Benign
--- NOTE | 2020-06-01 | DI.MG.S_ITS ---
BILATERAL DIGITAL DIAGNOSTIC MAMMOGRAM 3D/2D: 06/01/2020 CLINICAL: Left breast galactorrhea. Comparison is made to exams dated: 10/20/2016 mammogram, 10/06/2016 mammogram, and 05/26/2005 [facility]. The tissue of both breasts is heterogeneously dense. This may lower the sensitivity of mammography. No significant masses, calcifications, or other findings are seen in either breast. IMPRESSION: INCOMPLETE: NEEDS ADDITIONAL IMAGING EVALUATION There is no abnormality seen in the left breast to correspond with the area of clinical concern and non-bloody discharge from the nipple in the sub-areolar depth, however, ultrasound is recommended for further evaluation which is scheduled to immediately follow this examination. This exam was interpreted at Station ID: [id number]. NOTE: For mammograms, a report in lay terms will be sent to the patient. Approximately 15% of breast malignancies will not be visualized mammographically. In the management of a palpable breast mass, a negative mammogram must not discourage biopsy of a clinically suspicious lesion. Electronically Signed By: James Menendez M.D. aty/:06/01/2020 14:06:54 ACR BI-RADS Category 0: Incomplete 3340F
== END ==
PROVIDERS: PCP Family Medicine; Referring Provider Physician Assistant; Visit Provider Physician Assistant
DX: R92.8 Other abnormal and inconclusive findings on diagnostic imaging of breast (principal); N64.3 Galactorrhea not associated with childbirth; N64.52 Nipple discharge
CPT/HCPCS: 76642; 77066; G0279

== ENCOUNTER → 2023-05-29 15:26 | Outpatient (CLI) | payer MEDICAID, SELFPAY ==
[2019-12-08 02:53] VITALS: BMI 23.3
--- NOTE | 2023-05-29 16:21 | DI.MRI.S_ITS ---
PROCEDURE: MR TMJ WO CON INDICATIONS: Left TMJ pain TECHNIQUE: Axial T1 spin echo, coronal and sagittal PD fast spin echo through the temporomandibular joints, in both the closed- and open-mouth positions. COMPARISON: None. FINDINGS: Image quality: Excellent. Right: Joint is normally aligned on closed and open-mouth positioning. The right mandibular condyle demonstrates irregularity and osteophyte formation. The right articular disc appears mildly irregular. On the open mouth images, the right articular disc does not appropriately capture. Left: Joint is normally aligned on closed and open-mouth positioning. The left mandibular condyle demonstrates mild truncation and irregularity. The left articular disc appears irregular and it does not appropriately capture on the open mouth images. Moderate right mastoid air cell fluid can be seen. 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 The articular discs are irregular on both sides. On the open mouth imaging, the articular discs do not appropriately capture. Note made of right mastoid air cell fluid. Dictated by: Apollo Emanuel M.D. on 06/02/2023 at 16:56 Approved by: Apollo Emanuel M.D. on 06/02/2023 at 17:00
== END ==
PROVIDERS: PCP Family Medicine; Referring Provider Dentist; Visit Provider Dentist
DX: M26.69 Other specified disorders of temporomandibular joint (principal); M26.632 Articular disc disorder of left temporomandibular joint; M79.11 Myalgia of mastication muscle
CPT/HCPCS: 70336

== ENCOUNTER 2024-01-15 22:15 | Emergency (ER) | payer MEDICAID, SELFPAY ==
[2019-12-08 02:53] VITALS: BMI 23.3
[2024-01-15 22:19] VITALS: BP 149/67; PULSE 96; RESP 18; TEMP 37.2; O2SAT 99; BMI 28.1
--- NOTE | 2024-01-15 22:38 | ED.ABDPAIN ---
HPI - Abdominal Pain General Chief Complaint: Abdominal Pain Stated Complaint: lt flank pain Time Seen by Provider: 01/15/24 22:25 Source: patient Mode of arrival: Ambulatory History of Present Illness HPI narrative: 48yoF presents for LUQ abdominal pain. Preceeded by 3wks of nonproductive cough. Abdominal pain is worse when coughing or straining. Patient concerned she has kidney stone or infection. No medications taken at home prior to arrival. Asked if pain was similar to pulled muscle and patient stated she was not sure. Related Data Home Medications Medication Instructions Recorded Confirmed citalopram 20 mg tablet 20 mg PO DAILY 08/08/19 01/16/20 Previous Rx's Medication Instructions Recorded ferrous gluconate 324 mg (38 mg 324 mg PO DAILY acute blood loss 12/08/19 iron) tablet anemia #30 tabs benzonatate 200 mg capsule 200 mg PO BID-TID PRN cough #60 01/16/24 caps Allergies Allergy/AdvReac Type Severity Reaction Status Date / Time No Known Drug Allergies Allergy Unverified 01/16/20 10:35 Review of Systems Review of Systems Narrative: See HPI Patient History Medical History Incomplete Vaginal delivery Abnormal vaginal bleeding Surgical History History of dilation and curettage Status post surgery (08/09/10) Social History household members: children occupational status: employed Smoking Status: Former smoker substance use type: does not use Smoking Status: Former smoker tobacco type: cigarettes alcohol intake frequency: 0-2 drinks per day Substance Use Type: does not use Exam Initial Vital Signs Initial Vital Signs: Vital Signs Temperature 98.9 F 01/15/24 22:19 Pulse Rate 96 H 01/15/24 22:19 Respiratory Rate 18 01/15/24 22:19 Blood Pressure 149/67 H 01/15/24 22:19 Pulse Oximetry 99 01/15/24 22:19 Oxygen Delivery Method Room Air 01/15/24 22:19 Const: Awake, alert, no acute distress, nontoxic appearing Cardiac: regular rate, regular rhythm RESP: unlabored, clear bilaterally, no wheezing, nonproductive cough with prolonged conversation GI: Soft, left upper quadrant/side tenderness to deep palpation MSK: Atraumatic, full range of motion, pulses equal Skin: Warm, Dry, intact, no rashes Neuro: AO x3, CN II-XII grossly intact, moves all extremities Course Orders Ordered: Discontinued Medications Ketorolac Tromethamine (Ketorolac 30 Mg/Ml Vial) 15 mg IV NOW ONE Stop: 01/15/24 22:38 Last Admin: 01/15/24 23:10 Dose: 15 mg Documented By: SB Vital Signs Vital signs: Vital Signs - 8 hr 01/15/24 22:19 01/15/24 22:47 01/15/24 22:50 Temperature 98.9 F Pulse Rate 96 H 86 Respiratory Rate 18 14 Blood Pressure 149/67 H 136/61 Pulse Oximetry 99 Oxygen Delivery Method Room Air 01/15/24 22:50 01/15/24 23:00 01/15/24 23:00 Temperature Pulse Rate 90 90 Respiratory Rate 24 Blood Pressure 130/62 Pulse Oximetry 100 99 Oxygen Delivery Method Room Air 01/15/24 23:39 01/16/24 00:00 01/16/24 00:30 Temperature Pulse Rate 75 75 68 Respiratory Rate 19 Blood Pressure Pulse Oximetry 98 98 96 Oxygen Delivery Method Room Air MDM - Abdominal Pain Differential Diagnosis Differential diagnosis: Likely abdominal pain, acute appendicitis and calculus of kidney Lab Data 01/15/24 22:48 01/15/24 22:48 Labs: Lab Results 01/15/24 01/15/24 Range/Units 22:35 22:48 WBC 6.9 (4.5-11.0) X10^3/uL RBC 3.82 L (4.0-5.2) X10^6/uL Hgb 10.2 L (12.0-16.0) g/dL Hct 30.9 L (36-46) % MCV 80.8 (80-100) fL MCH 26.7 (26-34) PG MCHC 33.0 (30-36) % RDW 16.0 H (11.6-14.8) % Plt Count 260 (150-400) X10^3/uL Neut % (Auto) 57.3 (50-75) % Lymph % (Auto) 14.8 L (25-40) % [place] % (Auto) 6.6 (3-14) % Eos % (Auto) 20.8 H (2-4) % Baso % (Auto) 0.5 (0-2) % Neut # (Auto) 4000 (9156-1215) /uL Lymph # (Auto) 1000 L (2270-8283) /uL [place] # (Auto) 500 (0-900) /uL Eos # (Auto) 1400 H (0-450) /uL Baso # (Auto) 0 (0-100) /uL Sodium 140 (137-145) mmol/L Potassium 3.1 L (3.4-5.1) mmol/L Chloride 110 H (98-107) mmol/L Carbon Dioxide 27 (22-32) mmol/L BUN 10 (7-17) mg/dL Creatinine 0.65 (0.52-1.04) mg/dL Estimated GFR > 60 (>60) mL/min BUN/Creatinine Ratio 15.4 (6-22) Glucose 103 H (70-100) mg/dL Calcium 8.2 L (8.4-10.2) mg/dL Total Bilirubin 0.3 (0.2-1.3) mg/dL AST 41 H (14-36) IU/L ALT 26 (<35) IU/L Alkaline Phosphatase 78 (38-126) U/L Total Protein 6.9 (6.3-8.2) g/dL Albumin 4.0 (3.5-5.0) g/dL Globulin 2.9 (1.7-4.1) g/dL Albumin/Globulin Ratio 1.4 (1.0-2.8) Lipase 110 (23-300) U/L Urine Color Yellow Urine Appearance Slightly cloudy Urine pH 8.0 (4.5-8.0) Ur Specific [place] 1.015 (1.000-1.035) Urine Protein Trace H (Negative) Urine Glucose (UA) Negative (Negative) g/dL Urine Ketones Negative (NEGATIVE) Urine Occult Blood Negative (Negative) Urine Nitrate Negative (Negative) Urine Bilirubin Negative (NEGATIVE) Urine Urobilinogen 1.0 (0.2) E.U./dL Ur Leukocyte Esterase Trace H (NEGATIVE) Urine RBC None seen (0-5/HPF) Urine WBC 1-5/hpf (0-5/HPF) Ur Squamous Epith Cells 10-30 /hpf H D (0-5/HPF) Urine Bacteria Moderate (10-30) H (None) Ur Culture Indicated? Specimen cultured Vol Urine Centrifuged 10ml (spun) Urine Test Negative (Negative) Point of care testing: Urine Dip Bedside Urine Glucose Negative Bedside Urine Bilirubin - Negative Bedside Urine Ketone - Negative Urine Specific [place] 1.010 Bedside Urine Occult Blood - Negative Bedside Urine pH 7.5 Bedside Urine Protein +/- 15 Bedside Urine Urobilinogen - Negative Bedside Urine Nitrite - Negative Bedside Urine Leukocytes - Negative Esterase Imaging Data Chest x-ray: Radiologist's Impression: PROCEDURE: XR CHEST 1V INDICATIONS: cough x 3 wks TECHNIQUE: One view of the chest was acquired. COMPARISON: None. FINDINGS: Surgical changes and devices: None. Lungs and pleura: Lungs are clear. No pleural effusions or pneumothorax. Mediastinum: Mediastinal contours appear normal. Heart size is normal. Bones and chest wall: No suspicious bony lesions. Overlying soft tissues appear unremarkable. IMPRESSION: No acute cardiopulmonary abnormality is seen. Dictated by: Timothy Sheth M.D. on 01/15/2024 at 23:15 Approved by: Timothy Sheth M.D. on 01/15/2024 at 23:15 CT scan - abdomen/pelvis: Radiologist's Impression: PROCEDURE: CT ABDOMEN PELVIS W CON INDICATIONS: l flank/lower abd pain TECHNIQUE: After the administration of intravenous contrast, axial sections acquired from the lung bases to the pubic symphysis. Coronal and sagittal reformats were performed. For radiation dose reduction, the following was used: automated exposure control, adjustment of mA and/or kV according to patient size. COMPARISON: [facility], CT, ABDOMEN/PELVIS WITH CONTRAST, 05/18/2009, 3:05. [facility], CT, ABDOMEN/PELVIS WITH CONTRAST, 08/20/2007, 12:53. FINDINGS: Image quality: Diagnostic. Lower Chest: No significant findings. ABDOMEN: Liver: No solid mass. Gallbladder: No radiopaque gallstones or wall thickening. Biliary ducts: No biliary dilation. Pancreas: No ductal dilation. Spleen: Size is within normal limits. Adrenal Glands: No adrenal nodules. Kidneys and Ureters: No hydronephrosis. No solid mass. No complex renal cystic lesion which requires follow up. Stomach and Bowel: Normal colonic caliber, without significant wall thickening. Peritoneum: No abnormal intraperitoneal fluid. No free air. Ventral Wall: No significant ventral hernia. Abdominal Nodes: No retroperitoneal or mesenteric adenopathy by size criteria. Vessels: Aorta and inferior vena cava are normal in size. PELVIS: Pelvic Organs: Unremarkable. Bladder: No bladder wall thickening, accounting for underdistention. Pelvic Nodes: No enlarged lymph nodes. Miscellaneous: No inguinal hernias are seen. Normal appendix seen right lower quadrant. Bones: No aggressive osseous abnormality. IMPRESSION: Source of left flank pain and lower abdominal pain is not identified. No urinary tract stone or inflammation is found. No bowel abnormality is identified. A normal appendix was found at the right lower quadrant. Dictated by: Timothy Sheth M.D. on 01/16/2024 at 0:00 Approved by: Timothy Sheth M.D. on 01/16/2024 at 0:02 [facility] Narrative Medical decision making narrative: Well-appearing patient with left-sided pain. Suspect this is secondary to musculoskeletal strain after prolonged coughing. Lungs are clear to auscultation patent saturating well on room air, suspect patient was bronchitis contributing to her symptoms. Laboratory work and imaging will be obtained. Toradol ordered for comfort. Laboratory work is reviewed, WBC count 6.9, hemoglobin 10.2, platelets 260, sodium 140, potassium 3.1, chloride 110, creatinine 0.65. Chest x-ray negative for acute findings, CT of the abdomen and pelvis is reviewed, no acute findings to explain patient's symptoms. Patient reassessed, improved after Toradol, resting comfortably in bed. Patient counseled on lab and imaging findings, offered cough medications to see if this helps relieve abdominal strain. Cough medication sent to pharmacy of choice. Discharge Plan Departure Patient Disposition: Home Clinical Impression: Left upper quadrant pain Instructions: DI for Abdominal Muscle Strain Activity Restrictions/Additional Instructions: Your laboratory work and CT imaging today did not show any obvious abnormalities. You may have strained a muscle from your coughing. There was no evidence of pneumonia on your chest x-ray. You may take 400 mg of ibuprofen and 1000 mg of Tylenol every 4-6 hours as needed for pain. Take no more than 4000 mg total of Tylenol daily. Prescriptions: New benzonatate 200 mg capsule 200 mg PO BID-TID PRN (Reason: cough) Qty: 60 0RF No Action citalopram 20 mg tablet 20 mg PO DAILY ferrous gluconate 324 mg (38 mg iron) tablet 324 mg PO DAILY Qty: 30 3RF Rx Instructions: Take once daily with food. Referrals: Nasrin Gramajo MD [Primary Care Provider] - Stand Alone Forms: Patient Portal/API
[2024-01-15 22:47] VITALS: PULSE 86; RESP 14
[2024-01-15 22:50] VITALS: BP 136/61; PULSE 90; RESP 24; O2SAT 100
[2024-01-15 23:00] VITALS: BP 130/62; PULSE 90; O2SAT 99
[2024-01-15 23:00] LABS: Add Manual Diff / Slide Review NO; Basophils Absolute Auto 0 /uL (0-100); Basophils Percent Auto 0.5 % (0-2); Eosinophils Absolute Auto 1400 /uL (0-450); Eosinophils Percent Auto 20.8 % (2-4); Hematocrit 30.9 % (36-46); Hemoglobin 10.2 g/dL (12.0-16.0); Lymphocytes Absolute Auto 1000 /uL (1100-4500); Lymphocytes Percent Auto 14.8 % (25-40); Mean Corpuscular Hemoglobin 26.7 PG (26-34); Mean Corpuscular Volume 80.8 fL (80-100); Monocytes Absolute Auto 500 /uL (0-900); Monocytes Percent Auto 6.6 % (3-14); Neutrophils Absolute Auto 4000 /uL (1500-7000); Neutrophils Percent Auto 57.3 % (50-75); Platelet Count 260 X10^3/uL (150-400); Red Blood Cell Count 3.82 X10^6/uL (4.0-5.2); White Blood Cell Count 6.9 X10^3/uL (4.5-11.0)
[2024-01-15 23:10] LABS: Alanine Aminotransferase 26 IU/L (<35); Albumin Globulin Ratio 1.4 (1.0-2.8); Alkaline Phosphatase 78 U/L (38-126); Aspartate Aminotransferase 41 IU/L (14-36); BUN Creatinine Ratio 15.4 (6-22); Bilirubin Total 0.3 mg/dL (0.2-1.3); Blood Urea Nitrogen 10 mg/dL (7-17); Calcium 8.2 mg/dL (8.4-10.2); Carbon Dioxide 27 mmol/L (22-32); Chloride 110 mmol/L (98-107); Estimated Glomerular Filt Rate > 60 mL/min (>60); Globulin 2.9 g/dL (1.7-4.1); Glucose 103 mg/dL (70-100); HEMOLYSIS < 15 (0-50); Lipase 110 U/L (23-300); Potassium 3.1 mmol/L (3.4-5.1); Sodium 140 mmol/L (137-145); Total Protein 6.9 g/dL (6.3-8.2)
[2024-01-15] MEDS: KETOROLAC 30 MG/ML VIAL 15 MG IV (23:10)
[2024-01-15 23:14] LABS: Pregnancy Test Urine Negative (Negative)
[2024-01-15 23:16] LABS: Bilirubin Urine UA NEGATIVE (NEGATIVE); Color Urine UA YELLOW; Glucose Urine UA NEGATIVE (Negative); Ketones Urine UA NEGATIVE (NEGATIVE); Leukocyte Esterase Urine UA TRACE (NEGATIVE); Nitrite Urine UA NEGATIVE (Negative); Occult Blood Urine UA NEGATIVE (Negative); Protein Urine UA TRACE (Negative); Specific Gravity Urine UA 1.015 (1.000-1.035)
[2024-01-15 23:26] LABS: Appearance Urine UA Slightly Cloudy; RBC Urine None Seen (0-5/HPF); Urine Volume 10mL (spun); WBC Urine 1-5/HPF (0-5/HPF)
[2024-01-15 23:27] LABS: Bacteria Urine Moderate (10-30); Culture Indicated Urine Specimen Cultured; Squamous Epithelial Cell Urine 10-30 /HPF (0-5/HPF)
[2024-01-15 23:39] VITALS: PULSE 75; O2SAT 98
[2024-01-16] VITALS: PULSE 75; RESP 19; O2SAT 98
[2024-01-16 00:30] VITALS: PULSE 68; O2SAT 96
[2024-01-16 00:51] VITALS: BP 128/59; PULSE 76; RESP 18; O2SAT 97
== END 2024-01-16 00:56 | disposition home or self-care (01) ==
PROVIDERS: Emergency Provider Emergency Medicine; PCP Family Medicine
DX: R10.12 Left upper quadrant pain (principal); R05.9 Cough, unspecified
CPT/HCPCS: 36415; 71045; 74177; 80053; 81001; 81003; 81025; 83690; 85025; 87077; 87086; 87186; 93005; 96374; 99284; J1885; Q9967

== ENCOUNTER → 2024-01-23 07:43 | Outpatient (CLI) | payer MEDICAID, SELFPAY ==
[2019-12-08 02:53] VITALS: BMI 23.3
--- NOTE | 2024-01-23 07:44 | DI.MG.S_ITS ---
BILATERAL DIGITAL SCREENING MAMMOGRAM 3D/2D WITH CAD: 01/23/2024 CLINICAL: Routine screening. Comparison is made to exams dated: 06/01/2020 mammogram and 10/06/2016 mammogram - . Both breasts are heterogeneously dense, which may obscure small masses (category c / 51-75% glandular tissue). Current study was also evaluated with a Computer Aided Detection (CAD) system. No significant masses, calcifications, or other findings are seen in either breast. There has been no significant interval change. IMPRESSION: NEGATIVE There is no mammographic evidence of malignancy. A 1 year screening mammogram is recommended. Based on the Tyrer Cuzick model (a risk assessment model) the patient's lifetime risk is 8.7% and her 10 year risk is 1.7%. According to the ACR, ACS, and NCCN guidelines, an annual breast MRI exam along with mammogram is recommended if the patient's lifetime risk is 20% or greater. This exam was interpreted at Station ID: [id number]. NOTE: For mammograms, a report in lay terms will be sent to the patient. Approximately 15% of breast malignancies will not be visualized mammographically. In the management of a palpable breast mass, a negative mammogram must not discourage biopsy of a clinically suspicious lesion. Electronically Signed By: James falcon/wyatt:01/23/2024 17:50:34 letter sent: Normal Exam ACR BI-RADS Category 1: Negative [id number]
== END ==
PROVIDERS: PCP Family Medicine; Referring Provider Family Medicine; Visit Provider Family Medicine
DX: Z12.31 Encounter for screening mammogram for malignant neoplasm of breast (principal); R92.333 Mammographic heterogeneous density, bilateral breasts
CPT/HCPCS: 77063; 77067

== ENCOUNTER → 2024-02-12 12:52 | Outpatient (CLI) | payer MEDICAID, SELFPAY ==
[2019-12-08 02:53] VITALS: BMI 23.3
--- NOTE | 2024-02-12 12:56 | DI.RAD.S_ITS ---
PROCEDURE: XR CHEST 2V INDICATIONS: HEMOPTYSIS TECHNIQUE: 2 views of the chest were acquired. COMPARISON: [facility], CR, XR CHEST 1V, 01/15/2024, 22:37. FINDINGS: Surgical changes and devices: None. Lungs and pleura: Lungs are clear. No pleural effusions or pneumothorax. Mediastinum: Mediastinal contours are normal. Heart size is normal. Bones and chest wall: No suspicious bony abnormalities. Soft tissues appear unremarkable. IMPRESSION: No acute cardiopulmonary abnormality is seen. Dictated by: Bryanna Collins M.D. on 02/12/2024 at 13:56 Approved by: Bryanna Collins M.D. on 02/12/2024 at 13:57
== END ==
LOC: RAD 12:55
PROVIDERS: PCP Family Medicine; Referring Provider Nurse Practitioner Family; Visit Provider Nurse Practitioner Family
DX: R04.2 Hemoptysis (principal)
CPT/HCPCS: 71046

== ENCOUNTER → 2024-03-12 14:48 | Outpatient (CLI) | payer MEDICAID, SELFPAY ==
[2019-12-08 02:53] VITALS: BMI 23.3
--- NOTE | 2024-03-12 14:49 | DI.CT.S_ITS ---
PROCEDURE: CT CHEST WO CON INDICATIONS: Other forms of dyspnea TECHNIQUE: Noncontrast 5 mm thick sections acquired from the pulmonary apices to the posterior costophrenic angles. 1 mm lung window, 5 mm thick coronal and sagittal and 7 mm axial MIP reformats were then acquired. For radiation dose reduction, the following was used: automated exposure control, adjustment of mA and/or kV according to patient size. COMPARISON: None. FINDINGS: Image quality: Diagnostic. Lower Neck: No enlarged lymph nodes. Thyroid: No thyroid nodules which require sonographic follow up, per consensus guidelines. Axillae: No enlarged lymph nodes. Chest Wall: Unremarkable. Bones: Unremarkable. Lungs and Pleura: No pneumothorax or pleural effusions. There is diffuse at least mild bronchial wall thickening in all lung lewis. Findings may represent chronic bronchitis. No airspace consolidation. No suspicious pulmonary nodules. Heart: Heart size is normal. No pericardial effusion. Thoracic Vessels: The aorta and pulmonary arteries demonstrate normal size. Mediastinum and Cherelle: No enlarged lymph nodes. Trachea appears prominent in the AP dimension suggesting possible tracheomalacia. Esophagus: No wall thickening. No hiatal hernia. Upper Abdomen: Visualized upper abdomen solid organs and bowel loops appear normal. IMPRESSION: Diffuse bronchial wall thickening in all lung lewis, possibly indicating chronic bronchitis. Question tracheomalacia Dictated by: Kameron Boone M.D. on 03/12/2024 at 19:04 Approved by: Kameron Boone M.D. on 03/12/2024 at 19:07
== END ==
PROVIDERS: PCP Family Medicine; Referring Provider Family Medicine; Visit Provider Family Medicine
DX: R06.09 Other forms of dyspnea (principal)
CPT/HCPCS: 71250

== ENCOUNTER → 2024-04-10 09:18 | Outpatient (CLI) | payer MEDICAID, SELFPAY ==
[2019-12-08 02:53] VITALS: BMI 23.3
--- NOTE | 2024-04-10 09:19 | DI.ECHO.S_ITS ---
[facility] : : [address] : : [place] : : [id number] : : Phone: [phone] Echocardiogram Report + + :Name: ANNA SANDOVAL Study Date: 04/10/2024 Height: 66 in : :[facility] ReadingLocation: Weight: 55 lb : : Gender: Female BSA: 1.2 m2 : :: 1975 Age: 48 yrs BP: 120/78 mmHg: :Reason For Study: DYSPNEA ON EXERTION : :Ordering Physician: AZAEL, : :KAN Performed By: Samantha Ortega : :Referring: KAN ADDISON : + + Interpretation Summary The ejection fraction is estimated to be 55-60%. There is mild mitral regurgitation. Procedure: A two-dimensional transthoracic echocardiogram with color flow and Doppler was performed. The study quality was technically adequate. There is no prior echocardiogram noted for this patient. The patient was in sinus rhythm with heart rates between 76-86 bpm during the exam. Left Ventricle: The left ventricle is normal in size and wall thickness. The ejection fraction is estimated to be 55-60%. Left ventricular wall motion is normal. Right Ventricle: The right ventricle is normal in size and function. Atria: The left atrium is mildly dilated. The right atrium is mildly dilated. There is no Doppler evidence for an interatrial shunt. Mitral Valve: The mitral valve is normal in structure and function. There is mild mitral regurgitation. Aortic Valve: The aortic valve is trileaflet. The aortic valve opens well. There is no aortic valve stenosis. No aortic regurgitation is present. Tricuspid Valve: The tricuspid valve is normal in structure and function. There is trace tricuspid regurgitation. Pulmonic Valve: The pulmonic valve leaflets are thin and pliable; valve motion is normal. There is no pulmonic valvular regurgitation. Great Vessels: The aortic root is normal size. The dimensions of the ascending aorta are normal. The IVC is of normal diameter and collapses greater than 50% with a sniff. This suggests a low right atrial pressure of 3 mm Hg. Pericardium/ Pleura There is no pericardial effusion. There is no pleural effusion. MMode/2D Measurements & Calculations LVIDd: 5.0 cm LVOT diam: 2.0 cm LVIDs: 3.5 cm Ao root diam: 3.0 cm FS: 31.2 % asc Aorta Diam: 3.0 cm IVSd: 0.65 cm Ao Arch Diam (Prox Trans): 2.8 cm LVPWd: 0.54 cm LV larson. diameter/BSA (cm/m^2): 4.3 LV sys. diameter/BSA (cm/m^2): 3.0 LA A2 area: 17.5 cm2 RA long axis: 4.5 cm LA A4 area: 14.5 cm2 RA area: 14.8 cm2 LA length (vol): 5.0 cm RA vol: 41.5 ml LA vol: 42.8 ml RA : 35.9 ml/m2 LA vol index: 37.0 ml/m2 IVC diam: 1.5 cm RVD1 (basal): 3.2 cm RVD2 (mid): 2.8 cm TAPSE: 1.7 cm Doppler Measurements & Calculations Ao V2 max: 165.3 cm/sec LVOT Max Rickey: 85.9 cm/sec Ao V2 mean: 117.6 cm/sec LV V1 max P.0 mmHg Ao max P.9 mmHg LV V1 VTI: 18.7 cm Ao mean P.1 mmHg KENNY(I,D): 1.7 cm2 Ao V2 VTI: 34.5 cm KENNY(V,D): 1.6 cm2 sev ratio: 0.54 KENNY indexed to BSA (cm^2/m^2): 1.4 MV E max rickey: 76.5 cm/sec TR max rickey: 251.4 cm/sec MV A max rickey: 67.5 cm/sec TR max P.3 mmHg MV E/A: 1.1 PA V2 max: 82.5 cm/sec Med Peak E' Rickey: 11.4 cm/sec PA V2 mean: 56.9 cm/sec E/E' med: 6.7 PA mean P.4 mmHg Lat Peak E' Rickey: 14.2 cm/sec PA pr(Accel): 10.5 mmHg E/E' lat: 5.4 E/e' average: 6.1 MV dec time: 0.15 sec SV(LVOT): 57.1 ml Reading Physician:11:36 AM
== END ==
LOC: ECHO 09:18
PROVIDERS: PCP Family Medicine; Referring Provider Family Medicine; Visit Provider Family Medicine
DX: I34.0 Nonrheumatic mitral (valve) insufficiency (principal); R06.09 Other forms of dyspnea
CPT/HCPCS: 93306

== ENCOUNTER 2024-04-19 18:53 | Emergency (ER) | payer MEDICAID, SELFPAY ==
[2019-12-08 02:53] VITALS: BMI 23.3
[2024-04-19 18:56] VITALS: BMI 25.2
--- NOTE | 2024-04-19 20:39 | ED.GENADULT ---
HPI - General Adult General Chief complaint: Upper Respiratory Symptoms Stated complaint: sent by RN for possible stroke Time Seen by Provider: 04/19/24 20:05 Source: patient Mode of arrival: Ambulatory Limitations: no limitations History of Present Illness HPI narrative: Patient is a 48 old female. A couple weeks ago was diagnosed with bronchitis. Was put steroids and antibiotics. She was completed the course of this. She states that for the past several days/week or longer she has had tingling which started in her feet in his now moved upper legs. She also states she was having tingling in her hands. States that it is equal bilateral. No weakness. No skin changes. She also reports a slight headache occasionally. She was still having quite a bit of sinus congestion. No fevers. She contacted the nurse advice line who advised that she come to the emergency department for further evaluation. Related Data Home Medications Medication Instructions Recorded Confirmed citalopram 20 mg tablet 20 mg PO DAILY 08/08/19 01/16/20 Previous Rx's Medication Instructions Recorded ferrous gluconate 324 mg (38 mg 324 mg PO DAILY acute blood loss 12/08/19 iron) tablet anemia #30 tabs benzonatate 200 mg capsule 200 mg PO BID-TID PRN cough #60 01/16/24 caps Allergies Allergy/AdvReac Type Severity Reaction Status Date / Time No Known Drug Allergies Allergy Unverified 01/16/20 10:35 Review of Systems Review of Systems ROS Unobtainable: All systems reviewed & are unremarkable except as noted in HPI and below Patient History Medical History Incomplete Vaginal delivery Abnormal vaginal bleeding Surgical History History of dilation and curettage Status post surgery (08/09/10) Social History household members: children occupational status: employed Smoking Status: Former smoker substance use type: does not use Smoking Status: Former smoker tobacco type: cigarettes alcohol intake frequency: 0-2 drinks per day Substance Use Type: does not use Exam Initial Vital Signs Initial Vital Signs: Vital Signs Pulse Rate 90 04/19/24 21:10 Respiratory Rate 18 04/19/24 21:10 Blood Pressure 141/73 H 04/19/24 21:10 Pulse Oximetry 93 04/19/24 21:10 Oxygen Delivery Method Room Air 04/19/24 21:10 Const General: cooperative, comfortable and No ill appearing HENCA Head: normal to inspection and normocephalic Resp Effort & Inspection: normal respiratory effort Cardio Rate: regular rate Pulses: dorsalis pedis present bilaterally Skin General: no rashes or lesions noted Neuro General: patient alert, patient awake, patient oriented x3 and moves all extremities Cognition: normal cognition Speech: speech normal Gait: normal gait Motor: muscle tone normal throughout Sensory Exam: no sensory deficits noted Extrem General: capillary refill normal Course Orders Ordered: ED Orders 04/19/24 20:40 Basic Metabolic Panel Stat Complete Blood Count AUTO DIFF Stat Magnesium Stat Vital Signs Vital signs: Vital Signs - 8 hr 04/19/24 21:10 Pulse Rate 90 Respiratory Rate 18 Blood Pressure 141/73 H Pulse Oximetry 93 Oxygen Delivery Method Room Air Medical Decision Making Lab Data Lab results reviewed: Yes I reviewed the patient's lab results. 04/19/24 20:40 04/19/24 20:40 Labs: Lab Results 04/19/24 Range/Units 20:40 WBC 7.7 (4.5-11.0) X10^3/uL RBC 4.42 (4.0-5.2) X10^6/uL Hgb 11.5 L (12.0-16.0) g/dL Hct 35.6 L (36-46) % MCV 80.4 (80-100) fL MCH 26.1 (26-34) PG MCHC 32.4 (30-36) % RDW 16.5 H (11.6-14.8) % Plt Count 367 (150-400) X10^3/uL Neut % (Auto) 41.3 L (50-75) % Lymph % (Auto) 29.0 (25-40) % [place] % (Auto) 7.0 (3-14) % Eos % (Auto) 21.4 H (2-4) % Baso % (Auto) 1.3 (0-2) % Neut # (Auto) 3200 (8144-7114) /uL Lymph # (Auto) 2200 (2955-3936) /uL [place] # (Auto) 500 (0-900) /uL Eos # (Auto) 1600 H (0-450) /uL Baso # (Auto) 100 (0-100) /uL Sodium 136 L (137-145) mmol/L Potassium 3.5 (3.4-5.1) mmol/L Chloride 107 (98-107) mmol/L Carbon Dioxide 21 L (22-32) mmol/L BUN 9 (7-17) mg/dL Creatinine 0.82 (0.52-1.04) mg/dL Estimated GFR > 60 (>60) mL/min BUN/Creatinine Ratio 11.0 (6-22) Glucose 89 (70-100) mg/dL Calcium 9.1 (8.4-10.2) mg/dL Magnesium 1.8 (1.6-2.3) mg/dL MDM Narrative Medical decision making narrative: Patient has unremarkable labs. Her symptoms are equal bilateral. Low suspicion for an acute CVA/TIA. No indication that this is an electrolyte issue. She does have history of anxiety. We discussed that potentially her symptoms are anxiety related. There was no indication for continued antibiotics based on her presentation today. Provided reassurance and advised the patient contact your primary care doctor for follow-up. She was given return precautions. She expressed understanding and agreement. Discharge Plan Departure Patient Disposition: Home Clinical Impression: Distal paresthesia Instructions: DI for Numbness/Tingling Activity Restrictions/Additional Instructions: Continue to take all of your medications as directed. If your symptoms are not improved with the beginning of next week contact your primary care doctor for a follow-up. Return to the emergency department for new or worsening symptoms. Prescriptions: No Action citalopram 20 mg tablet 20 mg PO DAILY benzonatate 200 mg capsule 200 mg PO BID-TID PRN (Reason: cough) Qty: 60 0RF ferrous gluconate 324 mg (38 mg iron) tablet 324 mg PO DAILY Qty: 30 3RF Rx Instructions: Take once daily with food. Referrals: Nasrin Gramajo MD [Primary Care Provider] - Stand Alone Forms: Patient Portal/API
[2024-04-19 21:05] LABS: Add Manual Diff / Slide Review NO; Basophils Absolute Auto 100 /uL (0-100); Basophils Percent Auto 1.3 % (0-2); Eosinophils Absolute Auto 1600 /uL (0-450); Eosinophils Percent Auto 21.4 % (2-4); Hematocrit 35.6 % (36-46); Hemoglobin 11.5 g/dL (12.0-16.0); Lymphocytes Absolute Auto 2200 /uL (1100-4500); Mean Corpuscular HGB Conc 32.4 % (30-36); Mean Corpuscular Hemoglobin 26.1 PG (26-34); Mean Corpuscular Volume 80.4 fL (80-100); Monocytes Absolute Auto 500 /uL (0-900); Neutrophils Absolute Auto 3200 /uL (1500-7000); Neutrophils Percent Auto 41.3 % (50-75); Platelet Count 367 X10^3/uL (150-400); Red Blood Cell Count 4.42 X10^6/uL (4.0-5.2); Red Cell Distribution Width 16.5 % (11.6-14.8); White Blood Cell Count 7.7 X10^3/uL (4.5-11.0)
[2024-04-19 21:06] LABS: Blood Urea Nitrogen 9 mg/dL (7-17); Calcium 9.1 mg/dL (8.4-10.2); Carbon Dioxide 21 mmol/L (22-32); Chloride 107 mmol/L (98-107); Estimated Glomerular Filt Rate > 60 mL/min (>60); Glucose 89 mg/dL (70-100); HEMOLYSIS < 15 (0-50); Magnesium 1.8 mg/dL (1.6-2.3); Potassium 3.5 mmol/L (3.4-5.1); Sodium 136 mmol/L (137-145)
[2024-04-19 21:10] VITALS: BP 141/73; PULSE 90; RESP 18; O2SAT 93
== END 2024-04-19 21:48 | disposition home or self-care (01) ==
PROVIDERS: Emergency Provider Emergency Medicine; PCP Family Medicine
DX: R20.2 Paresthesia of skin (principal)
CPT/HCPCS: 36415; 80048; 83735; 85025; 99283

== ENCOUNTER 2024-04-25 17:37 | Inpatient (IN) | payer MEDICAID, SELFPAY ==
[2019-12-08 02:53] VITALS: BMI 23.3
[2024-04-25] VITALS (14 sets, daily range): BP systolic 141–166; BP diastolic 67–101; PULSE 116–133; RESP 25–41; TEMP 36.6–36.7; O2SAT 90–99; BMI 24.3; BMI 23.3
--- NOTE | 2024-04-25 17:44 | EKG_ITS ---
[facility] [address] [place] [address] Test Date: 2024-04-25 Pat Name: Karen Obrien Department: [facility] Room: Gender: Female [employer] D[employer] Operator: MITCHELL : 1975 Requested By: Order Number: [id number] Reading MD: Luis M Garcia MD Measurements Intervals [place] Rate: 133 P: 83 NC: 118 QRS: 92 QRSD: 70 T: 63 QT: 302 QTc: 449 Interpretive Statements Sinus tachycardia Biatrial enlargement Rightward axis Pulmonary disease pattern Nonspecific ST abnormality Electronically Signed On 04-26-2024 12:52:19 PDT by Luis M Garcia MD
--- NOTE | 2024-04-25 17:44 | DI.RAD.S_ITS ---
PROCEDURE: XR CHEST 1V INDICATIONS: Shortness of breath TECHNIQUE: One view of the chest was acquired. COMPARISON: [facility], CR, XR CHEST 2V, 02/12/2024, 12:55. FINDINGS: Surgical changes and devices: None. Lungs and pleura: Lungs are clear. No pleural effusions or pneumothorax. Mediastinum: Mediastinal contours appear normal. Heart size is normal. Bones and chest wall: No suspicious bony lesions. Overlying soft tissues appear unremarkable. IMPRESSION: No acute cardiopulmonary abnormality is seen. Approved by: Sarah Avila M.D.,Ph.D. on 04/25/2024 at 18:55
[2024-04-25 17:57] LABS: Add Manual Diff / Slide Review NO; Basophils Absolute Auto 100 /uL (0-100); Basophils Percent Auto 0.8 % (0-2); Eosinophils Absolute Auto 2600 /uL (0-450); Hematocrit 37.8 % (36-46); Hemoglobin 12.4 g/dL (12.0-16.0); Lymphocytes Absolute Auto 1400 /uL (1100-4500); Lymphocytes Percent Auto 11.8 % (25-40); Mean Corpuscular HGB Conc 32.7 % (30-36); Mean Corpuscular Hemoglobin 26.1 PG (26-34); Mean Corpuscular Volume 79.8 fL (80-100); Monocytes Absolute Auto 700 /uL (0-900); Monocytes Percent Auto 5.9 % (3-14); Neutrophils Absolute Auto 7400 /uL (1500-7000); Neutrophils Percent Auto 60.5 % (50-75); Platelet Count 398 X10^3/uL (150-400); Red Blood Cell Count 4.74 X10^6/uL (4.0-5.2); Red Cell Distribution Width 16.6 % (11.6-14.8); White Blood Cell Count 12.3 X10^3/uL (4.5-11.0)
--- NOTE | 2024-04-25 18:03 | ED.SOB ---
HPI - SOB/Dyspnea General Chief Complaint: Shortness of Breath/Dyspnea Stated Complaint: difficulty breathing Time Seen by Provider: 04/25/24 17:56 Source: patient and EMS Mode of arrival: EMS History of Present Illness HPI Narrative: Patient is a 48-year-old female without significant past medical history presenting today with increasing shortness of breath. She says that she is a non smoker she developed a cough back in November and since then she has been coughing and having breathing issues ever since. She says that today around 6:00 a.m. she started having difficulty breathing. She denies any fever chills or sore throat. She has been using her nebulizer throughout the day without any significant relief. She is in obvious respiratory distress upon arrival. She is also complaining of upper back and shoulder pain which she says feels warm and that is new. She has no significant swelling in her lower extremities. Never been intubated or on BiPAP. Related Data Home Medications Medication Instructions Recorded Confirmed citalopram 20 mg tablet 20 mg PO DAILY 08/08/19 04/25/24 fluticasone 100 mcg-salmeterol 50 1 ea inhalation BID 04/25/24 04/25/24 mcg/dose blistr powdr for inhalation Previous Rx's Medication Instructions Recorded ferrous gluconate 324 mg (38 mg 324 mg PO DAILY acute blood loss 12/08/19 iron) tablet anemia #30 tabs benzonatate 200 mg capsule 200 mg PO BID-TID PRN cough #60 01/16/24 caps Allergies Allergy/AdvReac Type Severity Reaction Status Date / Time No Known Drug Allergies Allergy Unverified 01/16/20 10:35 Patient History Medical History Incomplete Vaginal delivery Abnormal vaginal bleeding Surgical History History of dilation and curettage Status post surgery (08/09/10) Social History household members: children occupational status: employed Smoking Status: Former smoker substance use type: does not use Smoking Status: Former smoker tobacco type: cigarettes alcohol intake frequency: 0-2 drinks per day Substance Use Type: does not use Exam Initial Vital Signs Initial Vital Signs: Vital Signs Temperature 98.1 F 04/25/24 17:37 Pulse Rate 116 H 04/25/24 17:37 Respiratory Rate 33 H 04/25/24 17:37 Blood Pressure 155/101 H 04/25/24 17:37 Pulse Oximetry 98 04/25/24 17:37 Oxygen Delivery Method Room Air 04/25/24 17:37 GENERAL: Alert 48-year-old female appears in [id number] respiratory distress tachypnea and in no acute distress. HEENT: Head atraumatic,EOMI, pupils reactive, face symmetric, moist mucous membranes CARDIOVASCULAR: Regular rate and rhythm without murmurs, rubs or gallops. RESPIRATORY: Diffuse wheezing [id number] respiratory distress tachypneic able to speak in full sentences ABDOMEN: Soft, nontender. Normoactive bowel sounds all 4 quadrants. No guarding or rebound. : No CVA tenderness EXTREMITIES: Normal range of motion, no clubbing or edema. Neurovascularly intact NEUROLOGICAL: Alert and oriented x4.Normal gait and speech. SKIN: Warm, dry, no laceration, no petechiae, no rashes or lesions. Course Orders Ordered: ED Orders 04/25/24 17:44 XR chest 1V Stat Complete Blood Count AUTO DIFF Stat Comprehensive Metabolic Panel Stat D Dimer Stat Lactate (Lactic Acid) Stat NT-proBNP (BNP-Adult 18+) Stat Test Serum,Qual Stat Prothrombin Time INR Stat Troponin I Stat EKG-12 Lead Stat Measure peak expiratory flow ONCE RT Consult Eval and Treat NOW 04/25/24 18:30 Respiratory Panel (Film Array) Stat High flow/High humidity nasal NOW 04/25/24 18:33 CT angio chest PE protocol Stat Acetaminophen (Acetaminophen 325 Mg Tablet) 650 mg PO Q6H PRN PRN Reason: Fever/Mild Pain (1-3) Albuterol (Albuterol 2.5 Mg/3 Ml Neb (Adult)) 2.5 mg INH [id number] RADHA Albuterol (Albuterol 2.5 Mg/3 Ml Neb (Adult)) 2.5 mg INH RTQ2HR PRN PRN Reason: Shortness Of Breath Or Wheezing Benzonatate (Benzonatate 100 Mg Capsule) 200 mg PO TID PRN PRN Reason: Cough Last Admin: 04/25/24 23:15 Dose: 200 mg Documented By: CT Budesonide (Budesonide 0.5 Mg/2 Ml Neb) 0.5 mg INH RTBID [facility] Calcium Carbonate (Calcium Carbonate 500 Mg Tab) 1,000 mg PO Q4HR PRN PRN Reason: Dyspepsia Citalopram Hydrobromide (Citalopram 10 Mg Tablet) 20 mg PO DAILY [facility] Dexamethasone (Dexamethasone 10 Mg/Ml Vial) 6 mg IV DAILY [facility] Enoxaparin Sodium (Enoxaparin 40 Mg/0.4 Ml Syringe) 40 mg SUBCUT DAILY [facility] Ibuprofen (Ibuprofen 600 Mg Tablet) 600 mg PO Q6H PRN PRN Reason: Fever/Mild Pain (1-3) Lorazepam (Lorazepam 2 Mg/Ml Inj) 0.5 mg IV Q4HR PRN PRN Reason: Anxiety Morphine Sulfate (Morphine 4 Mg/Ml Inj) 3 mg IV Q4HR [facility] Naloxone HCl (Naloxone 0.4 Mg/Ml Vial) 0.2 mg IV Q2MIN PRN PRN Reason: Opiate Reversal Ondansetron HCl (Ondansetron 4 Mg/2 Ml Inj) 4 mg IV Q8HR PRN PRN Reason: Nausea And Vomiting Oxycodone HCl (Oxycodone Ir 5 Mg Tablet) 5 mg PO Q3H PRN PRN Reason: Pain, Moderate (4-6) Last Admin: 04/25/24 23:14 Dose: 5 mg Documented By: ROGELIO Promethazine HCl (Promethazine 12.5 Mg Supp) 12.5 mg [place] Q6HR PRN PRN Reason: Nausea And Vomiting Sennosides (Sennosides 8.6 Mg Tablet) 17.2 mg PO BEDTIME [facility] Discontinued Medications Albuterol (Albuterol 2.5 Mg/3 Ml Neb (Adult)) 20 mg INH NOW ONE Stop: 04/25/24 18:06 Albuterol (Albuterol 2.5 Mg/3 Ml Neb (Adult)) 10 mg INH NOW ONE Stop: 04/25/24 18:01 Last Admin: 04/25/24 18:05 Dose: 10 mg Documented By: MITCHELL Albuterol (Albuterol 2.5 Mg/3 Ml Neb (Adult)) 2.5 mg INH [id number] PRN PRN Reason: Shortness Of Breath Albuterol/Ipratropium (Albuterol/Ipratropium 3 Ml Ampul) 3 ml INH NOW ONE Stop: 04/25/24 19:16 Last Admin: 04/25/24 19:20 Dose: 3 ml Documented By: GILDA Methylprednisolone (Methylprednisolone 125 Mg/2 Ml Vial) 125 mg IV NOW ONE Stop: 04/25/24 18:06 Last Admin: 04/25/24 18:13 Dose: 125 mg Documented By: Vital Signs Vital signs: Vital Signs - 8 hr 04/25/24 17:37 04/25/24 17:42 04/25/24 18:00 Temperature 98.1 F Pulse Rate 116 H 121 H Respiratory Rate 33 H Blood Pressure 155/101 H 156/70 H Pulse Oximetry 98 99 Oxygen Delivery Method Room Air Oxygen Flow Rate Fraction of Inspired Oxygen 04/25/24 18:00 04/25/24 18:05 04/25/24 18:30 Temperature Pulse Rate 127 H 131 H Respiratory Rate 39 H 36 H Blood Pressure 166/74 H Pulse Oximetry 92 92 Oxygen Delivery Method Room Air Oxygen Flow Rate 0 Fraction of Inspired Oxygen 21 04/25/24 18:30 04/25/24 18:40 04/25/24 19:00 Temperature Pulse Rate 133 H 128 H Respiratory Rate 41 H 36 H Blood Pressure 141/67 H Pulse Oximetry 90 L 92 Oxygen Delivery Method Oxygen Flow Rate Fraction of Inspired Oxygen 04/25/24 19:00 04/25/24 19:24 04/25/24 19:30 Temperature Pulse Rate 125 H 124 H 127 H Respiratory Rate 37 H 32 H Blood Pressure Pulse Oximetry 92 96 94 Oxygen Delivery Method High Flow Nasal Cannula Nasal Cannula Oxygen Flow Rate 2 Fraction of Inspired Oxygen 04/25/24 19:32 04/25/24 20:00 04/25/24 20:30 Temperature Pulse Rate 124 H 123 H 121 H Respiratory Rate 32 H Blood Pressure Pulse Oximetry 96 93 94 Oxygen Delivery Method Oxygen Flow Rate Fraction of Inspired Oxygen 04/25/24 21:00 Temperature Pulse Rate 118 H Respiratory Rate Blood Pressure Pulse Oximetry 95 Oxygen Delivery Method Oxygen Flow Rate Fraction of Inspired Oxygen MDM - SOB/Dyspnea Lab Data 04/25/24 17:44 04/25/24 17:44 Labs: Lab Results 04/25/24 04/25/24 Range/Units 17:44 18:30 WBC 12.3 H (4.5-11.0) X10^3/uL RBC 4.74 (4.0-5.2) X10^6/uL Hgb 12.4 (12.0-16.0) g/dL Hct 37.8 (36-46) % MCV 79.8 L (80-100) fL MCH 26.1 (26-34) PG MCHC 32.7 (30-36) % RDW 16.6 H (11.6-14.8) % Plt Count 398 (150-400) X10^3/uL Neut % (Auto) 60.5 (50-75) % Lymph % (Auto) 11.8 L (25-40) % [place] % (Auto) 5.9 (3-14) % Eos % (Auto) 21.0 H (2-4) % Baso % (Auto) 0.8 (0-2) % Neut # (Auto) 7400 H (6598-2810) /uL Lymph # (Auto) 1400 (2880-4009) /uL [place] # (Auto) 700 (0-900) /uL Eos # (Auto) 2600 H (0-450) /uL Baso # (Auto) 100 (0-100) /uL PT 10.3 (9.4-12.5) SECONDS INR 0.9 (0.9-1.3) D-Dimer 657 H (<500) ng/ml Sodium 138 (137-145) mmol/L Potassium 3.9 (3.4-5.1) mmol/L Chloride 106 (98-107) mmol/L Carbon Dioxide 25 (22-32) mmol/L BUN 8 (7-17) mg/dL Creatinine 0.74 (0.52-1.04) mg/dL Estimated GFR > 60 (>60) mL/min BUN/Creatinine Ratio 10.8 (6-22) Glucose 105 H (70-100) mg/dL Lactate 1.0 (0.7-2.1) mmol/L Calcium 8.7 (8.4-10.2) mg/dL Total Bilirubin 0.6 (0.2-1.3) mg/dL AST 45 H (14-36) IU/L ALT 31 (<35) IU/L Alkaline Phosphatase 148 H (38-126) U/L Troponin I < 0.012 (0.01-0.034) ng/mL NT-Pro-B Natriuret Pep 208 H (<125) pg/mL Total Protein 8.3 H (6.3-8.2) g/dL Albumin 4.3 (3.5-5.0) g/dL Globulin 4.0 (1.7-4.1) g/dL Albumin/Globulin Ratio 1.1 (1.0-2.8) Serum , Qual Negative (Negative) Chlamy pneumoniae PCR Not detected (Not Detect) Adenovirus (PCR) Not detected (Not Detect) B.parapertussis DNA PCR Not detected (Not Detecte) Coronavirus OC43 (PCR) Not detected (Not Detect) Coronavirus HKU1 (PCR) Not detected (Not Detect) Coronavirus 229E (PCR) Not detected (Not Detect) SARS-CoV-2 (PCR) Detected H (Not Detecte) Coronavirus NL63 (PCR) Not detected (Not Detect) Human Metapneumovir PCR Not detected (Not Detect) Influenza Type A (PCR) Not detected (Not Detect) Influenza Type B (PCR) Not detected (Not Detect) M. pneumoniae (PCR) Not detected (Not Detect) Parainfluenza 1 (PCR) Not detected (Not Detect) Parainfluenza 2 (PCR) Not detected (Not Detect) Parainfluenza 3 (PCR) Not detected (Not Detect) Parainfluenza 4 (PCR) Not detected (Not Detect) RSV (PCR) Not detected (Not Detect) Entero/Rhino (PCR) Not detected (Not Detect) Imaging Data Chest x-ray: Radiologist's Impression: PROCEDURE: XR CHEST 1V INDICATIONS: Shortness of breath TECHNIQUE: One view of the chest was acquired. COMPARISON: [facility], XR CHEST 2V, 02/12/2024, 12:55. FINDINGS: Surgical changes and devices: None. Lungs and pleura: Lungs are clear. No pleural effusions or pneumothorax. Mediastinum: Mediastinal contours appear normal. Heart size is normal. Bones and chest wall: No suspicious bony lesions. Overlying soft tissues appear unremarkable. IMPRESSION: No acute cardiopulmonary abnormality is seen. Approved by: Sarah Avila M.D.,Ph.D. on 04/25/2024 at 18:55 CT scan - chest: Radiologist's Impression: PROCEDURE: CT ANGIO CHEST PE PROTOCOL INDICATIONS: hypoxia TECHNIQUE: After the administration of intravenous contrast, 2 mm thick sections acquired from the pulmonary apices to the posterior costophrenic angles. 3-dimensional maximum intensity projection (MIP) coronal and sagittal reformats were then acquired through the thorax. For radiation dose reduction, the following was used: automated exposure control, adjustment of mA and/or kV according to patient size. COMPARISON: None. FINDINGS: Image quality: Diagnostic. Pulmonary arteries: Pulmonary arteries are normal in size, and demonstrate no intraluminal filling defects to suggest central pulmonary embolism. Lower Neck: No enlarged lymph nodes. Thyroid: No thyroid nodules which require sonographic follow up, per consensus guidelines. Axillae: No enlarged lymph nodes. Chest Wall: Unremarkable. Bones: Unremarkable. Lungs and Pleura: No pneumothorax or pleural effusions. No consolidation. A few scattered pulmonary micro nodules. Heart: Heart size is normal. No pericardial effusion. Thoracic Vessels: No aortic aneurysm. Mediastinum and Cherelle: No enlarged lymph nodes. Esophagus: No wall thickening. No hiatal hernia. Upper Abdomen: Visualized upper abdomen solid organs and bowel loops appear normal. IMPRESSION: No pulmonary embolus. No acute cardiopulmonary process. A few scattered pulmonary micro nodules. If patient is high risk for lung malignancy, recommend follow-up CT chest in 12 months to demonstrate stability per Fleischner society guidelines. Approved by: Sarah Avila M.D.,Ph.D. on 04/25/2024 at 20:43 ECG Data Attestation: I personally reviewed and interpreted this ECG as follows: Prior ECG tracings: available for review Interpretation: Sinus tachycardia rate 133 IL interval 118 QRS [address] QTC [address] changes tachycardia is new from previous EKGs MDM Narrative Medical decision making narrative: [facility] CC: Shortness of breath Complicating co-morbidities: Viral illness back in November 2019 for continued respiratory issues since then Medical records reviewed: Only a couple ED visits. Was seen for upper respiratory symptoms 04/19/2024 was previously put on steroids and antibiotics. She was diagnosed with paresthesias in March Differential considered: Pulmonary embolism congestive heart failure pneumonia Exam documented above, pertinent findings include: Bilateral diffuse wheezing [id number] tachypnea Lab Test results independently reviewed as above. Pertinent findings: COVID positive WBC 12.3, hemoglobin 12.4 hematocrit 37.8 platelets 398, D-dimer 657, sodium 138 potassium 0.9 chloride 106 carbon dioxide 25 BUN 8 creatinine 0.7 glucose 105 lactate 1.0 bili 0.6 AST 45 ALT 31 alk-phos 148, troponin BNP 208 Independently reviewed EKG as above sinus tachycardia Imaging studies independently reviewed: Chest x-ray no acute cardiopulmonary process CT angio no pulmonary embolism with scattered micro nodules Consultations: Dr. Perdue updated patient's symptoms test results and happily accepts patient Treatments: Multiple albuterol treatments Solu-Medrol, and high-flow Re-evaluations: Patient was given 10 mg of albuterol with EMS but still diffusely wheezing and tachypneic upon arrival. She was then given 10 more mg of albuterol which did seem help. But she was still pretty tachypneic and oxygen was down into the 90s. She was placed on high-flow which seemed to give her the most relief. Discussion: Patient 48-year-old female who has had ongoing respiratory issues for the past several months. Today she is positive for COVID-19. She was diffusely wheezing which she improved with albuterol however due to her increased work of breathing she was placed on high-flow. Oxygen did go down to 90% [place] improved with high-flow nasal cannula. She overall appeared well and was tolerating it. CT did not show any evidence of pulmonary embolism She is some mild leukocytosis but a COVID-19 no evidence of pneumonia no need for antibiotics Really has no significant risk factors, not sure that remdesivir is still indicated. Patient admitted to the hospitalist service for supportive care Critical Care Time Critical Care Time Critical Care Time: Yes Total Critical Care Time: 35 Attestation: The high probability of a clinically significant, sudden or life threatening deterioration of the respiratory system(s) required my full and direct attention, intervention and personal management. The aggregate critical care time was 35 minutes. This time is in addition to time spent performing reported procedures but includes the following: [x] Data Review and interpretation [x] Patient assessment and monitoring of vital signs [x] Documentation [x] Medication orders and management Discharge Plan Departure Patient Disposition: Admitted As Inpatient Clinical Impression: COVID-19, Hypoxia Admit Date/Time: 04/25/24 21:07 Admit Provider: Ottoniel Tobias
[2024-04-25] MEDS: ALBUTEROL 2.5 MG/3 ML NEB (ADULT) 10 MG INH (18:05)
[2024-04-25 18:11] LABS: INR 0.9 (0.9-1.3); Prothrombin Time 10.3 SECONDS (9.4-12.5)
[2024-04-25] MEDS: methylPREDNISolone 125 MG/2 ML VIAL IV (18:13)
[2024-04-25 18:16] LABS: Alanine Aminotransferase 31 IU/L (<35); Albumin 4.3 g/dL (3.5-5.0); Albumin Globulin Ratio 1.1 (1.0-2.8); Alkaline Phosphatase 148 U/L (38-126); Aspartate Aminotransferase 45 IU/L (14-36); BUN Creatinine Ratio 10.8 (6-22); Bilirubin Total 0.6 mg/dL (0.2-1.3); Blood Urea Nitrogen 8 mg/dL (7-17); Calcium 8.7 mg/dL (8.4-10.2); Carbon Dioxide 25 mmol/L (22-32); Chloride 106 mmol/L (98-107); Estimated Glomerular Filt Rate > 60 mL/min (>60); Glucose 105 mg/dL (70-100); HEMOLYSIS < 15 (0-50); Potassium 3.9 mmol/L (3.4-5.1); Sodium 138 mmol/L (137-145); Total Protein 8.3 g/dL (6.3-8.2)
[2024-04-25 18:26] LABS: D Dimer 657 ng/ml (<500)
[2024-04-25 18:28] LABS: NT-proBNP (BNP-Adult 18+) 208 pg/mL (<125); Troponin I < 0.012 ng/mL (0.01-0.034)
--- NOTE | 2024-04-25 18:33 | DI.CT.S_ITS ---
PROCEDURE: CT ANGIO CHEST PE PROTOCOL INDICATIONS: hypoxia TECHNIQUE: After the administration of intravenous contrast, 2 mm thick sections acquired from the pulmonary apices to the posterior costophrenic angles. 3-dimensional maximum intensity projection (MIP) coronal and sagittal reformats were then acquired through the thorax. For radiation dose reduction, the following was used: automated exposure control, adjustment of mA and/or kV according to patient size. COMPARISON: None. FINDINGS: Image quality: Diagnostic. Pulmonary arteries: Pulmonary arteries are normal in size, and demonstrate no intraluminal filling defects to suggest central pulmonary embolism. Lower Neck: No enlarged lymph nodes. Thyroid: No thyroid nodules which require sonographic follow up, per consensus guidelines. Axillae: No enlarged lymph nodes. Chest Wall: Unremarkable. Bones: Unremarkable. Lungs and Pleura: No pneumothorax or pleural effusions. No consolidation. A few scattered pulmonary micro nodules. Heart: Heart size is normal. No pericardial effusion. Thoracic Vessels: No aortic aneurysm. Mediastinum and Cherelle: No enlarged lymph nodes. Esophagus: No wall thickening. No hiatal hernia. Upper Abdomen: Visualized upper abdomen solid organs and bowel loops appear normal. IMPRESSION: No pulmonary embolus. No acute cardiopulmonary process. A few scattered pulmonary micro nodules. If patient is high risk for lung malignancy, recommend follow-up CT chest in 12 months to demonstrate stability per Fleischner society guidelines. Approved by: Sarah Avila M.D.,Ph.D. on 04/25/2024 at 20:43
[2024-04-25 18:43] LABS: Pregnancy Test Serum,Qual Negative (Negative)
--- NOTE | 2024-04-25 18:44 | RT ---
1840 -pt placed on HHFNC 24% FiO2/ 40 LPM. Pt is tolerating well. Device plugged into red outlet.
[2024-04-25] MEDS: ALBUTEROL/IPRATROPIUM 3 ML AMPUL INH (19:20)
[2024-04-25 19:31] LABS: Adenovirus Not Detected (Not Detect); B. parapertussis Not Detected (Not Detecte); Bordetella pertussis Not Detected (Not Detect); Chlamydophila pneumoniae Not Detected (Not Detect); Coronavirus 229E Not Detected (Not Detect); Coronavirus HKU1 Not Detected (Not Detect); Coronavirus NL 63 Not Detected (Not Detect); Coronavirus OC43 Not Detected (Not Detect); Human Metapneumovirus Not Detected (Not Detect); Human Rhinovirus/Enterovirus Not Detected (Not Detect); Influenza A Not Detected (Not Detect); Influenza B Not Detected (Not Detect); Mycoplasma pneumoniae Not Detected (Not Detect); Parainfluenza Virus 1 Not Detected (Not Detect); Parainfluenza Virus 2 Not Detected (Not Detect); Parainfluenza Virus 3 Not Detected (Not Detect); Parainfluenza Virus 4 Not Detected (Not Detect); Respiratory Syncytial Virus Not Detected (Not Detect); SARS- CoV-2 Detected (Not Detecte)
--- NOTE | 2024-04-25 22:46 | PM.HP.1 ---
History of Present Illness History of Present Illness Date Patient Seen: 04/25/24 Time Patient Seen: 22:46 Chief complaint: difficulty breathing Narrative: The pt is a 48 yo who reports testing herself for COVID at home and was positive so she came to the ER today for evaluation and was positive at our facility. The pt appeared very dyspneic in the ER and was placed on high flow oxygen. Per RN report, the pt's SaO2 never dropped below 92%. She states her symptoms started about 6 months ago but she did not seek medical attention until 3 months ago and went to her PCP. some tests and blood was drawn, the pt states but cannot give me any details about any results or diagnosis. 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 [facility] Medical History Incomplete Vaginal delivery Abnormal vaginal bleeding Surgical History History of dilation and curettage Status post surgery (08/09/10) Social History household members: children occupational status: employed Smoking Status: Former smoker substance use type: does not use Meds Home Medications and Allergies Home Medications Medication Instructions Recorded Confirmed Type citalopram 20 mg tablet 20 mg PO DAILY 08/08/19 04/25/24 History ferrous gluconate 324 mg (38 mg 324 mg PO DAILY acute blood loss 12/08/19 04/25/24 Rx iron) tablet anemia #30 tabs benzonatate 200 mg capsule 200 mg PO BID-TID PRN cough #60 01/16/24 04/25/24 Rx caps fluticasone 100 mcg-salmeterol 50 1 ea inhalation BID 04/25/24 04/25/24 History mcg/dose blistr powdr for inhalation Allergies Allergy/AdvReac Type Severity Reaction Status Date / Time No Known Drug Allergies Allergy Unverified 01/16/20 10:35 Exam Vital Signs (past 8 hours): - 04/25/24 17:37 04/25/24 17:42 04/25/24 18:00 Temperature 98.1 F Pulse Rate 116 H 121 H Respiratory Rate 33 H Blood Pressure 155/101 H 156/70 H Pulse Oximetry 98 99 Oxygen Delivery Method Room Air Oxygen Flow Rate Fraction of Inspired Oxygen 04/25/24 18:00 04/25/24 18:05 04/25/24 18:30 Temperature Pulse Rate 127 H 131 H Respiratory Rate 39 H 36 H Blood Pressure 166/74 H Pulse Oximetry 92 92 Oxygen Delivery Method Room Air Oxygen Flow Rate 0 Fraction of Inspired Oxygen 21 04/25/24 18:30 04/25/24 18:40 04/25/24 19:00 Temperature Pulse Rate 133 H 128 H Respiratory Rate 41 H 36 H Blood Pressure 141/67 H Pulse Oximetry 90 L 92 Oxygen Delivery Method Oxygen Flow Rate Fraction of Inspired Oxygen 04/25/24 19:00 04/25/24 19:24 04/25/24 19:30 Temperature Pulse Rate 125 H 124 H 127 H Respiratory Rate 37 H 32 H Blood Pressure Pulse Oximetry 92 96 94 Oxygen Delivery Method High Flow Nasal Cannula Nasal Cannula Oxygen Flow Rate 2 Fraction of Inspired Oxygen 04/25/24 19:32 04/25/24 20:00 04/25/24 20:30 Temperature Pulse Rate 124 H 123 H 121 H Respiratory Rate 32 H Blood Pressure Pulse Oximetry 96 93 94 Oxygen Delivery Method Oxygen Flow Rate Fraction of Inspired Oxygen 04/25/24 21:00 Temperature Pulse Rate 118 H Respiratory Rate Blood Pressure Pulse Oximetry 95 Oxygen Delivery Method Oxygen Flow Rate Fraction of Inspired Oxygen Fraction of Inspired Oxygen 21 SaO2/FiO2 Ratio 438 Oxygen Delivery Method Nasal Cannula Oxygen Flow Rate 2 Const General: cooperative, healthy appearing and comfortable Other: pt insists on standing since she is too hot to sit. Resp Effort & Inspection: normal respiratory effort Auscultation: rales Other: on high flow oxygen at 24%, 40 liter per min, SaO2-94%, Cardio Rate: regular rate Rhythm: regular rhythm Skin General: no rashes or lesions noted Objective Labs 04/25/24 17:44 04/25/24 17:44 Labs: Laboratory Results - last 24 hr 04/25/24 04/25/24 17:44 18:30 WBC 12.3 H RBC 4.74 Hgb 12.4 Hct 37.8 MCV 79.8 L MCH 26.1 MCHC 32.7 RDW 16.6 H Plt Count 398 Neut % (Auto) 60.5 Lymph % (Auto) 11.8 L [place] % (Auto) 5.9 Eos % (Auto) 21.0 H Baso % (Auto) 0.8 Neut # (Auto) 7400 H Lymph # (Auto) 1400 [place] # (Auto) 700 Eos # (Auto) 2600 H Baso # (Auto) 100 PT 10.3 INR 0.9 D-Dimer 657 H Sodium 138 Potassium 3.9 Chloride 106 Carbon Dioxide 25 BUN 8 Creatinine 0.74 Estimated GFR > 60 BUN/Creatinine Ratio 10.8 Glucose 105 H Lactate 1.0 Calcium 8.7 Total Bilirubin 0.6 AST 45 H ALT 31 Alkaline Phosphatase 148 H Troponin I < 0.012 NT-Pro-B Natriuret Pep 208 H Total Protein 8.3 H Albumin 4.3 Globulin 4.0 Albumin/Globulin Ratio 1.1 Serum , Qual Negative Chlamy pneumoniae PCR Not detected Adenovirus (PCR) Not detected B.parapertussis DNA PCR Not detected Coronavirus OC43 (PCR) Not detected Coronavirus HKU1 (PCR) Not detected Coronavirus 229E (PCR) Not detected SARS-CoV-2 (PCR) Detected H Coronavirus NL63 (PCR) Not detected Human Metapneumovir PCR Not detected Influenza Type A (PCR) Not detected Influenza Type B (PCR) Not detected M. pneumoniae (PCR) Not detected Parainfluenza 1 (PCR) Not detected Parainfluenza 2 (PCR) Not detected Parainfluenza 3 (PCR) Not detected Parainfluenza 4 (PCR) Not detected RSV (PCR) Not detected Entero/Rhino (PCR) Not detected Assessment & Plan Assessment & Plan narrative: COVID + acute respiratory failure with hypoxia- I have discussed the pt symptoms and labs with the ER provider and agree with the admission. I have revieved the pt's labs myself showing a WBC of 12.3, with normal electrolytes, will start the pt on Decadron 6 mg daily, breathing tx prn with cough suppressants, I recommend weaning the oxygen down keeping the SaO2 > 88%, some of the dyspnea is due to anxiety and ativan has been ordered 0.5 mg prn, home meds reviewed and reordered Time-Based Coding :: [TOTAL MINUTES] spent with patient and on the chart (including review of chart, obtaining history, exam, reviewing outside data, placing orders, documenting exam and treatment plan, and counseling patient) on [DATE].
[2024-04-25] MEDS: OXYCODONE IR 5 MG TABLET PO (23:14)
[2024-04-25] MEDS: BENZONATATE 100 MG CAPSULE 200 MG PO (23:15)
[2024-04-26] VITALS (10 sets, daily range): BP systolic 123–159; BP diastolic 79–93; PULSE 88–102; RESP 19–28; TEMP 36.3–37; O2SAT 95–100
[2024-04-26 05:14] LABS: Add Manual Diff / Slide Review NO; Basophils Absolute Auto 0 /uL (0-100); Basophils Percent Auto 0.5 % (0-2); Eosinophils Absolute Auto 0 /uL (0-450); Eosinophils Percent Auto 0.1 % (2-4); Hemoglobin 12.4 g/dL (12.0-16.0); Lymphocytes Absolute Auto 1300 /uL (1100-4500); Lymphocytes Percent Auto 15.8 % (25-40); Mean Corpuscular HGB Conc 32.7 % (30-36); Mean Corpuscular Hemoglobin 26.1 PG (26-34); Mean Corpuscular Volume 79.6 fL (80-100); Monocytes Absolute Auto 300 /uL (0-900); Monocytes Percent Auto 3.2 % (3-14); Neutrophils Absolute Auto 6600 /uL (1500-7000); Neutrophils Percent Auto 80.4 % (50-75); Platelet Count 371 X10^3/uL (150-400); Red Blood Cell Count 4.77 X10^6/uL (4.0-5.2); Red Cell Distribution Width 16.6 % (11.6-14.8); White Blood Cell Count 8.2 X10^3/uL (4.5-11.0)
[2024-04-26 05:24] LABS: Blood Urea Nitrogen 11 mg/dL (7-17); Calcium 9.1 mg/dL (8.4-10.2); Carbon Dioxide 22 mmol/L (22-32); Chloride 106 mmol/L (98-107); Estimated Glomerular Filt Rate > 60 mL/min (>60); Glucose 129 mg/dL (70-100); Potassium 4.2 mmol/L (3.4-5.1); Sodium 138 mmol/L (137-145)
[2024-04-26 05:32] LABS: HEMOLYSIS 55 (0-50)
[2024-04-26] MEDS: ALBUTEROL 2.5 MG/3 ML NEB (ADULT) INH ×5 (06:00→22:54)
[2024-04-26] MEDS: BENZONATATE 100 MG CAPSULE 200 MG PO ×3 (06:20→20:43)
[2024-04-26] MEDS: OXYCODONE IR 5 MG TABLET PO ×4 (06:20→20:42)
[2024-04-26 07:03] LABS: Base Excess ABG -1.7 mmol/L (-2-3); HCO3 ABG 22 mmol/L (23-27); Oxygen Saturation ABG 97 % (95-100); PO2 ABG 91 mmHg (80-100); TCO2 ABG 22 mmol/L (23-27); pH ABG 7.41 (7.35-7.45)
[2024-04-26] MEDS: ONDANSETRON 4 MG/2 ML INJ IV (07:17)
--- NOTE | 2024-04-26 08:18 | PM.PN.1 ---
Subjective Subjective Interval history: The pt. is a 48 yo who reports testing herself for COVID at home and was positive so she came to the ER today for evaluation and was positive at our facility. The pt. appeared very dyspneic in the ER and was placed on high flow oxygen. Per RN report, the pt's SaO2 never dropped below 92%. She states her symptoms started about 6 months ago but she did not seek medical attention until 3 months ago and went to her PCP. some tests and blood was drawn, the pt. states but cannot give me any details about any results or diagnosis. 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 S: She feels better today. She was less short of breath. Her cough continues. She was no pain. She was had diarrhea for about 10 days. Exam Vital Signs (past 8 hours): - 04/26/24 05:00 Pulse Oximetry 95 Oxygen Delivery Method High Flow Nasal Cannula Oxygen Flow Rate 40 Fraction of Inspired Oxygen 21 SaO2/FiO2 Ratio 438 Oxygen Delivery Method High Flow Nasal Cannula Oxygen Flow Rate 40 Narrative Exam Narrative: NAD, alert and oriented. Fluent speech. On oxygen nasal cannula. Lungs are notable for scattered rhonchi and wheezing, normal rate and effort. Heart is regular, no murmur gallop or rub. Abdomen is soft, non distended. Extremities are free of edema. Objective Labs 04/26/24 04:22 04/26/24 04:22 Labs: Laboratory Results - last 24 hr 04/25/24 04/25/24 04/26/24 17:44 18:30 04:22 WBC 12.3 H 8.2 RBC 4.74 4.77 Hgb 12.4 12.4 Hct 37.8 38.0 MCV 79.8 L 79.6 L MCH 26.1 26.1 MCHC 32.7 32.7 RDW 16.6 H 16.6 H Plt Count 398 371 Neut % (Auto) 60.5 80.4 H Lymph % (Auto) 11.8 L 15.8 L [place] % (Auto) 5.9 3.2 Eos % (Auto) 21.0 H 0.1 L Baso % (Auto) 0.8 0.5 Neut # (Auto) 7400 H 6600 Lymph # (Auto) 1400 1300 [place] # (Auto) 700 300 Eos # (Auto) 2600 H 0 Baso # (Auto) 100 0 PT 10.3 INR 0.9 D-Dimer 657 H ABG pH ABG pCO2 ABG pO2 ABG HCO3 ABG Total CO2 ABG O2 Saturation ABG Base Excess Sodium 138 138 Potassium 3.9 4.2 Chloride 106 106 Carbon Dioxide 25 22 BUN 8 11 Creatinine 0.74 0.58 Estimated GFR > 60 > 60 BUN/Creatinine Ratio 10.8 19.0 Glucose 105 H 129 H Lactate 1.0 Calcium 8.7 9.1 Total Bilirubin 0.6 AST 45 H ALT 31 Alkaline Phosphatase 148 H Troponin I < 0.012 NT-Pro-B Natriuret Pep 208 H Total Protein 8.3 H Albumin 4.3 Globulin 4.0 Albumin/Globulin Ratio 1.1 Serum , Qual Negative Chlamy pneumoniae PCR Not detected Adenovirus (PCR) Not detected B.parapertussis DNA PCR Not detected Coronavirus OC43 (PCR) Not detected Coronavirus HKU1 (PCR) Not detected Coronavirus 229E (PCR) Not detected SARS-CoV-2 (PCR) Detected H Coronavirus NL63 (PCR) Not detected Human Metapneumovir PCR Not detected Influenza Type A (PCR) Not detected Influenza Type B (PCR) Not detected M. pneumoniae (PCR) Not detected Parainfluenza 1 (PCR) Not detected Parainfluenza 2 (PCR) Not detected Parainfluenza 3 (PCR) Not detected Parainfluenza 4 (PCR) Not detected RSV (PCR) Not detected Entero/Rhino (PCR) Not detected 04/26/24 06:44 WBC RBC Hgb Hct MCV MCH MCHC RDW Plt Count Neut % (Auto) Lymph % (Auto) [place] % (Auto) Eos % (Auto) Baso % (Auto) Neut # (Auto) Lymph # (Auto) [place] # (Auto) Eos # (Auto) Baso # (Auto) PT INR D-Dimer ABG pH 7.41 ABG pCO2 35.0 ABG pO2 91 ABG HCO3 22 L ABG Total CO2 22 L ABG O2 Saturation 97 ABG Base Excess -1.7 Sodium Potassium Chloride Carbon Dioxide BUN Creatinine Estimated GFR BUN/Creatinine Ratio Glucose Lactate Calcium Total Bilirubin AST ALT Alkaline Phosphatase Troponin I NT-Pro-B Natriuret Pep Total Protein Albumin Globulin Albumin/Globulin Ratio Serum , Qual Chlamy pneumoniae PCR Adenovirus (PCR) B.parapertussis DNA PCR Coronavirus OC43 (PCR) Coronavirus HKU1 (PCR) Coronavirus 229E (PCR) SARS-CoV-2 (PCR) Coronavirus NL63 (PCR) Human Metapneumovir PCR Influenza Type A (PCR) Influenza Type B (PCR) M. pneumoniae (PCR) Parainfluenza 1 (PCR) Parainfluenza 2 (PCR) Parainfluenza 3 (PCR) Parainfluenza 4 (PCR) RSV (PCR) Entero/Rhino (PCR) [facility] Medical History Incomplete Vaginal delivery Abnormal vaginal bleeding Surgical History History of dilation and curettage Status post surgery (08/09/10) Social History household members: children occupational status: employed Smoking Status: Former smoker substance use type: does not use Assessment & Plan Assessment & Plan narrative: 1. COVID pneumonia, present on admission and active. 2. Acute hypoxic respiratory failure, present on admission and active. 3. A phone call from her PCP reported a high B12 level over 2000 and a high CK of 500 and recent outpatient labs. He requested repeat labs and these have been ordered. Dr Cooper Paulson, . Plan: -continue dexamethasone and remdesivir. -cough suppressants. -wean O2 as able. She was now off high-flow 1 on 5 L nasal cannula. Full code. YAHIR: 04/28. Time-Based Coding :: 25 min spent with patient and on the chart (including review of chart, obtaining history, exam, reviewing outside data, placing orders, documenting exam and treatment plan, and counseling patient) on 04/26.
[2024-04-26] MEDS: CITALOPRAM 10 MG TABLET 20 MG PO (08:39)
[2024-04-26] MEDS: DEXAMETHASONE 10 MG/ML VIAL 6 MG IV (08:39)
[2024-04-26] MEDS: ENOXAPARIN 40 MG/0.4 ML SYRINGE SUBCUT (08:39)
[2024-04-26] MEDS: REMDESIVIR 200 MG in SODIUM CHLORIDE 0.9% 250 ML 250 MG IV (09:00)
[2024-04-26] MEDS: BUDESONIDE 0.5 MG/2 ML NEB INH ×2 (10:12→19:23)
[2024-04-26] MEDS: ACETAMINOPHEN 325 MG TABLET 650 MG PO ×2 (10:37→17:05)
[2024-04-26] MEDS: PROMETHAZINE 12.5 MG SUPP PR (10:37)
[2024-04-26 14:25] LABS: Creatine Kinase 410 U/L (30-135)
--- NOTE | 2024-04-26 14:38 | CM.DANOTE ---
DCP Assessment Note: Pt is a 48yo female, resident of [place], is admitted for COVID+ and hypoxia. Pt lives in a house with her 4 children, 3 are under the age of 18. Pt's Primary Care Provider is Dr. Nasrin Gramajo MD and insurance is Medicaid. Reviewed chart and team rounds for pt's medical status and initial discharge needs. DCP met w/patient at bedside; introduced self and role. Patient was found in bed, a bit somnolent but cooperative with assessment. Pt confirmed living situation and good support in daughter and other extended family who live in [place] as well. Pt expressed preference in returning home when medically stable, agreeable to hospitalist estimated discharge date of 04/28. Patient is requiring 5L of O2 at the moment, did not use oxygen prior to admission. 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 No discharge needs identified at this time. Plan: Anticipating discharge home with mother to transport when medically stable. CM team will follow closely for coordination of discharge plans. DOUGLAS Beverly Discharge Planning/Care Management CM Discharge Assessment Start: 04/26/24 14:30 Freq: Status: Active Protocol: Document 04/26/24 14:30 MW (Rec: 04/26/24 14:38 MW [id number]) Discharge Planning Assessment Assigned Soil Scientist NIA Wells DPOA/Assigned Designee Name Trista Rea Contact Information [phone] Advance Directives? No History Provided By Patient,Medical Record Has Patient been admitted in last 30 No days? Prior Living Arrangements House Household Members children Comment Patient lives with four of her children, 3 are under the age of 18. Type of transporation used prior to Drives own vehicle admit Independent with ADL's Yes Is patient alert and oriented? Yes Caregiver for Another No Discharge Plan Home Transportation Arrangement Patient's mother can drive her home. Referrals Initiated None needed Whiteboard Updated in Patient Room with Yes name and ext. # of Soil Scientist Comment [phone] Please Provide Date Initial DC 04/26/24 Assessment Was Performed Next Review Type Continued Stay Review
[2024-04-26 15:16] LABS: Vitamin B12 > 1000 pg/mL (239-931)
[2024-04-26] MEDS: IBUPROFEN 600 MG TABLET PO (20:41)
[2024-04-26] MEDS: SENNOSIDES 8.6 MG TABLET 17.2 MG PO (20:43)
[2024-04-27] VITALS (8 sets, daily range): BP systolic 129–142; BP diastolic 86–92; PULSE 71–110; RESP 19–22; TEMP 36.2–36.6; O2SAT 95–97
[2024-04-27] MEDS: ALBUTEROL 2.5 MG/3 ML NEB (ADULT) INH ×4 (03:47→11:34)
[2024-04-27] MEDS: BUDESONIDE 0.5 MG/2 ML NEB INH (06:22)
[2024-04-27] MEDS: BENZONATATE 100 MG CAPSULE 200 MG PO (07:24)
[2024-04-27] MEDS: OXYCODONE IR 5 MG TABLET PO (07:58)
--- NOTE | 2024-04-27 08:35 | PC.NURSE ---
alert and oriented, asks appropriately for needs. RT here. Pain med given prior to RT. Pt's BS tight. SOBOE.
[2024-04-27] MEDS: ENOXAPARIN 40 MG/0.4 ML SYRINGE SUBCUT (10:37)
[2024-04-27] MEDS: CITALOPRAM 10 MG TABLET 20 MG PO (10:38)
[2024-04-27] MEDS: DEXAMETHASONE 10 MG/ML VIAL 6 MG IV (10:38)
[2024-04-27] MEDS: REMDESIVIR 100 MG in SODIUM CHLORIDE 0.9% 250 ML 250 MG IV (10:38)
[2024-04-27 11:09] LABS: Add Manual Diff / Slide Review NO; Basophils Absolute Auto 100 /uL (0-100); Basophils Percent Auto 0.8 % (0-2); Eosinophils Absolute Auto 1100 /uL (0-450); Eosinophils Percent Auto 11.2 % (2-4); Hematocrit 37.6 % (36-46); Hemoglobin 12.4 g/dL (12.0-16.0); Lymphocytes Absolute Auto 1700 /uL (1100-4500); Lymphocytes Percent Auto 16.9 % (25-40); Mean Corpuscular HGB Conc 32.9 % (30-36); Mean Corpuscular Hemoglobin 26.2 PG (26-34); Mean Corpuscular Volume 79.8 fL (80-100); Monocytes Absolute Auto 700 /uL (0-900); Monocytes Percent Auto 6.8 % (3-14); Neutrophils Absolute Auto 6400 /uL (1500-7000); Neutrophils Percent Auto 64.3 % (50-75); Platelet Count 382 X10^3/uL (150-400); Red Blood Cell Count 4.71 X10^6/uL (4.0-5.2); Red Cell Distribution Width 16.3 % (11.6-14.8); White Blood Cell Count 9.9 X10^3/uL (4.5-11.0)
[2024-04-27 11:20] LABS: BUN Creatinine Ratio 19.5 (6-22); Blood Urea Nitrogen 15 mg/dL (7-17); Calcium 9.3 mg/dL (8.4-10.2); Carbon Dioxide 26 mmol/L (22-32); Chloride 103 mmol/L (98-107); Estimated Glomerular Filt Rate > 60 mL/min (>60); Glucose 114 mg/dL (70-100); HEMOLYSIS < 15 (0-50); Magnesium 1.9 mg/dL (1.6-2.3); Potassium 3.4 mmol/L (3.4-5.1); Sodium 139 mmol/L (137-145)
--- NOTE | 2024-04-27 13:00 | P.DS_ITS ---
History of Present Illness History of Present Illness Date Patient Seen: 04/27/24 Time Patient Seen: 13:00 Chief complaint: difficulty breathing Narrative: Per admitting provider, The pt is a 48 yo who reports testing herself for COVID at home and was positive so she came to the ER today for evaluation and was positive at our facility. The pt appeared very dyspneic in the ER and was placed on high flow oxygen. Per RN report, the pt's SaO2 never dropped below 92%. She states her symptoms started about 6 months ago but she did not seek medical attention until 3 months ago and went to her PCP. some tests and blood was drawn, the pt states but cannot give me any details about any results or diagnosis. 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 Discharge Providers Provider Date of admission: 04/25/24 21:07 Discharge Date: 04/27/24 Primary care physician: Nasrin Gramajo MD Discharge provider: Jamil Santiago DO Summary Hospital Course Discharge Diagnosis: 1. COVID pneumonia, present on admission and active. 2. Acute hypoxic respiratory failure, present on admission and active. 3. mild rhabdomyolysis, improved 4. probable COPD with exacerbation Hospital Course: This is a 48 year old female with ? COPD on fluticason/salmeterol who was admitted with COVID infection and acute respiratory failure with hypoxia. She improved on remdesevir and dexamethasone. After 2 days, she was able to be weaned off of supplemental oxygen, not requiring oxygen at rest or with ambulation. She was saturating between 92-94% on room air at the time of discharge. The patient felt improved. She was discharged on 4 more days of steroids for presumed COPD exacerbation and possible continued treatment of her COVID infection. No other changes to her home medications were recommended at the time of discharge. Time Spent with Patient Time spent: Greater than 30 minutes Exam Vital Signs (past 8 hours): - 04/27/24 08:00 04/27/24 08:36 04/27/24 11:34 Temperature 97.7 F Pulse Rate 76 101 H 110 H Respiratory Rate 19 22 20 Blood Pressure 142/86 H Pulse Oximetry 97 96 95 Oxygen Delivery Method High Flow Nasal Cannula High Flow Nasal Cannula Oxygen Flow Rate 3 3 3 04/27/24 12:00 04/27/24 12:58 Temperature 97.8 F Pulse Rate 88 Respiratory Rate 20 Blood Pressure 137/87 Pulse Oximetry 97 96 Oxygen Delivery Method Nasal Cannula Oxygen Flow Rate 3 4 Fraction of Inspired Oxygen 21 SaO2/FiO2 Ratio 438 Oxygen Delivery Method Nasal Cannula Oxygen Flow Rate 4 Narrative Exam Narrative: NAD, alert and oriented. Fluent speech. On oxygen nasal cannula. Lungs are notable for scattered rhonchi and wheezing, normal rate and effort. Heart is regular, no murmur gallop or rub. Abdomen is soft, non distended. Extremities are free of edema. Objective Labs 04/27/24 11:00 04/27/24 11:00 Labs: Laboratory Results - last 24 hr 04/25/24 04/27/24 17:44 11:00 WBC 9.9 RBC 4.71 Hgb 12.4 Hct 37.6 MCV 79.8 L MCH 26.2 MCHC 32.9 RDW 16.3 H Plt Count 382 Neut % (Auto) 64.3 Lymph % (Auto) 16.9 L [place] % (Auto) 6.8 Eos % (Auto) 11.2 H Baso % (Auto) 0.8 Neut # (Auto) 6400 Lymph # (Auto) 1700 [place] # (Auto) 700 Eos # (Auto) 1100 H Baso # (Auto) 100 Sodium 139 Potassium 3.4 Chloride 103 Carbon Dioxide 26 BUN 15 Creatinine 0.77 Estimated GFR > 60 BUN/Creatinine Ratio 19.5 Glucose 114 H Calcium 9.3 Magnesium 1.9 Total Creatine Kinase 410 H Vitamin B12 > 1000 H [facility] Medical History Incomplete Vaginal delivery Abnormal vaginal bleeding Surgical History History of dilation and curettage Status post surgery (08/09/10) Social History household members: children occupational status: employed Smoking Status: Former smoker substance use type: does not use Discharge Plan Discharge Plan Patient Disposition: Home Provider Discharge Comment: You were admitted to the hospital with the need for oxygen and COVID. You improved with treatments and steroids. Continue steroids and supportive treatments at home. Albuterol inhaler also sent to your pharmacy. Discharge orders & Medications Prescriptions: New albuterol sulfate 90 mcg/actuation HFA aerosol inhaler 2 puff inhalation Q4-6H PRN (Reason: shortness of breath or wheezing) Qty: 8.5 0RF prednisone 20 mg tablet 40 mg PO DAILY 4 Days Qty: 8 0RF Continued citalopram 20 mg tablet 20 mg PO DAILY benzonatate 200 mg capsule 200 mg PO BID-TID PRN (Reason: cough) Qty: 60 0RF fluticasone propion-salmeterol 100-50 mcg/dose blister with device 1 ea inhalation BID ferrous gluconate 324 mg (38 mg iron) tablet 324 mg PO DAILY Qty: 30 3RF Rx Instructions: Take once daily with food. Follow up/Referrals: Nasrin Gramajo MD [Primary Care Provider] - Diet/Activity/Treatments Diet: Diet as Tolerated and Regular Activity: As tolerated, no restrictions. Visit Report/Discharge Packet Instructions: DI for Heart Failure Stand Alone Forms: Congestive Heart Failure, Patient Portal/API, Stroke Signs & Symptoms Discharge Data Primary Care Provider: Nasrin Gramajo
== END 2024-04-27 14:07 | disposition home or self-care (01) | DRG 177 ==
LOC: ED 21:06 → AC 21:07
PROVIDERS: Emergency Medicine; Hospitalist; Internal Medicine; Admitting Provider Internal Medicine; Emergency Provider Emergency Medicine; PCP Family Medicine; Referring Provider Emergency Medicine; Visit Provider Internal Medicine
DX: U07.1 COVID-19 (principal); J12.82 Pneumonia due to coronavirus disease 2019; J96.01 Acute respiratory failure with hypoxia; M62.82 Rhabdomyolysis; J44.0 Chronic obstructive pulmonary disease with (acute) lower respiratory infection; J44.1 Chronic obstructive pulmonary disease with (acute) exacerbation; F41.9 Anxiety disorder, unspecified; Z87.891 Personal history of nicotine dependence
CPT/HCPCS: 36415; 36600; 71045; 71275; 80048; 80053; 82550; 82607; 82805; 83605; 83735; 83880; 84484; 84703; 85025; 85379; 85610; 87633; 93005; 93010; 94640; 94760; 96374; 99285; 99291; J1100; J1650; J2405; J2919; J7613; Q9967

== ENCOUNTER → 2024-05-01 15:00 | Outpatient (CLI) | payer MEDICAID, SELFPAY ==
[2024-04-25 22:32] VITALS: BMI 23.3
[2024-05-01 17:26] LABS: Hematocrit 39.2 % (36-46); Mean Corpuscular HGB Conc 33.1 % (30-36); Mean Corpuscular Hemoglobin 26.3 PG (26-34); Mean Corpuscular Volume 79.4 fL (80-100); Platelet Count 485 X10^3/uL (150-400); Red Blood Cell Count 4.94 X10^6/uL (4.0-5.2); Red Cell Distribution Width 16.2 % (11.6-14.8); White Blood Cell Count 7.3 X10^3/uL (4.5-11.0)
[2024-05-01 17:46] LABS: Neutrophils Absolute Manual 5913 /uL (3000-5900); Total Cells Counted 100
[2024-05-01 17:47] LABS: Anisocytosis 1+
[2024-05-01 19:05] LABS: Vitamin B12 > 1000 pg/mL (239-931)
[2024-05-02 21:50] LABS: HIV 1 & 2 Ab/Ag 4th Gen Combo NEGATIVE (NEGATIVE)
== END ==
PROVIDERS: PCP Family Medicine; Referring Provider Student in an Organized Health Care Education/Training Program; Visit Provider Student in an Organized Health Care Education/Training Program
DX: D72.10 Eosinophilia, unspecified (principal)
CPT/HCPCS: 36415; 82607; 82785; 85025; 86003; 86038; 86256; 87389